=== PATIENT | female | born 1935 | race Caucasian/White ===

== ENCOUNTER 2017-10-30 18:40 | Inpatient (IN) | payer MEDICARE, OTHER ==
[2017-10-30 19:04] LABS: % BASOPHILS 1.6 % (0.0-2.0); % EOSINOPHILS 7.2 % (0.0-5.0); % LYMPHOCYTES 34.5 % (20.0-50.0); % MONOCYTES 13.8 % (2.0-10.0); % NEUTROPHILS 42.9 % (40.0-80.0); BASOPHILE ABSOLUTE 0.1 Th/cumm (0-0.2); EOSINOPHILE ABSOLUTE 0.6 Th/cmm (0.1-0.4); HEMATOCRIT 32.2 % (41.0-60); HEMOGLOBIN 11.1 gm/dL (12-16); LYMPHOCYTE ABSOLUTE 2.9 Th/cmm (1.5-3.0); MEAN CELL VOLUME 90.4 fl (81-100); MEAN CORPUSCULAR HGB CONC 34.3 pg (28.0-36.0); MEAN PLATELET VOLUME 7.2 fl; MONOCYTE ABSOLUTE 1.1 Th/cmm (0.3-1.0); NEUTROPHILE ABSOLUTE 3.6 Th/cmm (1.8-8.0); PLATELET COUNT 257 Th/cmm (150-400); RED BLOOD COUNT 3.56 Mil/cmm (3.80-5.20); RED CELL DISTRIBUTION WIDTH 12.7 % (11.5-20.0); WHITE BLOOD COUNT 8.3 Th/cmm (4.8-10.8)
[2017-10-30 19:19] LABS: ALB/GLOB RATIO 1.3 (1.0-1.8); ALBUMIN 3.8 gm/dL (3.7-5.3); ALKALINE PHOSPHATASE 51 U/L (34-104); ANION GAP 9.6 (7.0-16.0); BILIRUBIN,TOTAL 0.3 mg/dL (0.3-1.0); BUN - UREA NITROGEN 35 mg/dL (7-25); CALCIUM SERUM 9.2 mg/dL (8.6-10.3); CARBON DIOXIDE 28.7 mEq/L (21.0-31.0); CHLORIDE 105 mEq/L (98-107); GLUCOSE 86 mg/dL (70-105); MAGNESIUM 2.2 mg/dL (1.9-2.7); PHOSPHOROUS 3.4 mg/dL (2.5-5.0); POTASSIUM SERUM 4.3 mEq/L (3.5-5.1); SGOT 15 U/L (13-39); SGPT/ALT 10 U/L (7-52); SODIUM SERUM 139 mEq/L (136-145); TOTAL PROTEIN,SERUM 6.8 gm/dL (6.0-8.3)
[2017-10-30 19:28] LABS: URINE BILIRUBIN NEGATIVE (NEGATIVE); URINE BLOOD NEGATIVE (NEGATIVE); URINE GLUCOSE (UA) NEGATIVE (NEGATIVE); URINE KETONE NEGATIVE (NEGATIVE); URINE LEUKOCYTE ESTERASE MODERATE (NEGATIVE); URINE NITRATE NEGATIVE (NEGATIVE); URINE PROTEIN NEGATIVE (NEGATIVE); URINE SOURCE CLEAN C; URINE UROBILINOGEN 0.2 E.U./dL (0.2 - 1.0)
[2017-10-30 19:29] LABS: URINE CLARITY HAZY (CLEAR); URINE COLOR YELLOW; URINE MICROSCOPIC INDICATED? YES; URINE RBC 0-2 /hpf (0-5)
[2017-10-30 19:30] LABS: URINE BACTERIA 1+ /hpf (NONE SEEN); URINE EPITHELIAL CELLS MODERATE /lpf (FEW)
[2017-10-30 19:39] LABS: AMPHETAMINE URINE NEGATIVE (NEGATIVE); BARBITURATES URINE NEGATIVE (NEGATIVE); BENZODIAZEPINES QUAL URINE NEGATIVE (NEGATIVE); CANNABINOID THC NEGATIVE (NEGATIVE); COCAINE METABOLITE QUAL URINE NEGATIVE (NEGATIVE); METHADONE URINE NEGATIVE (NEGATIVE); METHAMPHETAMINES QUAL URINE NEGATIVE (NEGATIVE); OPIATES (MORPHINE) QUAL. URINE NEGATIVE (NEGATIVE); PHENCYCLIDINE (PCP) URINE NEGATIVE (NEGATIVE); TRICYCLICS (TCA) QUAL. URINE POSITIVE (NEGATIVE)
--- NOTE | 2017-10-30 19:39 | ED Physician Chart ---
ED Chief Complaint/HPI - Patient Information Date Seen:: 10/30/17 Time Seen:: 18:46 Chief Complaint:: extremely violent, hitting History of Present Illness:: extremely violent, hitting Allergies:: Allergies Allergy/AdvReac Type Severity Reaction Status Date / Time No Known Allergies Allergy Verified 10/30/17 18:45 Vitals:: Vital Signs - 8 hr 10/30/17 18:46 Temp 98.4 F HR 64 RR 19 BP 150/55 O2 Sat % 98 Historian:: Medical Records Review:: Nurse's Note Reviewed ED Review of Systems - Review of Systems General/Constitutional: No fever, No chills, No weight loss, No weakness, No diaphoresis, No edema, No loss of appetite Skin: Skin lesions, No rash, No bruising, Other (left axillary boil with small amount of pus that decompressed and was cultured. No need for I and D. Only blood is coming out now. Suspected MRSA.) Head: No headache, No light-headedness Eyes: No loss of vision, No pain, No diplopia ENT: No earache, No nasal drainage, No sore throat, No tinnitus Neck: No neck pain, No swelling, No thyromegaly, No stiffness, No mass noted Cardio Vascular: No chest pain, No palpitations, No PND, No orthopnea, No edema Pulmonary: No SOB, No cough, No sputum, No wheezing GI: No nausea, No vomiting, No diarrhea, No pain, No melena, No hematochezia, No constipation, No hematemesis G/U: No dysuria, No frequency, No hematuria Musculoskeletal: No bone or joint pain, No back pain, No muscle pain Endocrine: No polyuria, No polydipsia Psychiatric: Prior psych history Hematopoietic: No bruising, No lymphadenopathy Allergic/Immuno: No urticaria, No angioedema Neurological: No syncope, No focal symptoms, No weakness, No paresthesia, No headache, No seizure, No dizziness, No confusion, No vertigo ED Past Medical History - Past Medical History Obtainable: No Past Medical History: CVA/TIA Psychiatricy History: Depression Family Medical History - Family Member Mother History Unknown: Yes father History Unknown: Yes ED Physical Exam - Physical Examination General/Constitutional: Awake, Well-developed, well-nourished, Alert, No distress, Non-toxic appearing, Ambulatory Head: Atraumatic Eyes: Lids, conjuctiva normal, PERRL, EOMI Skin: Nl inspection, No rash, No skin lesions, No ecchymosis, No lymphadenopathy Other Skin comments:: dry mucosa ENMT: External ears, nose nl, Nasal exam nl, Lips, teeth, gums nl Neck: Nontender, Full ROM w/o pain, No JVD, No nuchal rigidity, No bruit, No mass, No stridor Respiratory: Nl effort/Exclusion, Clear to Auscultation, No Wheeze/Rhonchi/Rales Cardio Vascular: RRR, No murmur, gallop, rubs, NL S1 S2 GI: No tenderness/rebounding/guarding, No organomegaly, No hernia, Normal BS's, Nondistended, No mass/bruits, No McBurney tenderness : No CVA tenderness Extremities: No tenderness or effusion, Full ROM, normal strength in all extremities, No edema, Normal digits & nails Neuro/Psych: Normal sensory exam, Normal motor strength, Mood normal, No focal deficits Other Neuro/Psych comments:: c/o pain in R plantar foot where there is a thick callus present. Misc: Normal back, No paraspinal tenderness ED Labs/Radiology/EKG Results - Lab Results Results: Laboratory Tests 10/30/17 10/30/17 10/30/17 18:46 18:55 18:55 WBC 8.3 RBC 3.56 L Hgb 11.1 L Hct 32.2 L MCV 90.4 MCH 31.0 MCHC Differential 34.3 RDW 12.7 Plt Count 257 MPV 7.2 Neutrophils % 42.9 Lymphocytes % 34.5 Monocytes % 13.8 H Eosinophils % 7.2 H Basophils % 1.6 Sodium 139 Potassium 4.3 Chloride 105 Carbon Dioxide 28.7 Anion Gap 9.6 BUN 35 H Creatinine 1.0 Est GFR ( Amer) TNP Est GFR (Non-Af Amer) TNP BUN/Creatinine Ratio 35.0 Glucose 86 Calcium 9.2 Phosphorus 3.4 Magnesium 2.2 Total Bilirubin 0.3 AST 15 ALT 10 Alkaline Phosphatase 51 Total Protein 6.8 Albumin 3.8 Globulin 3.0 Albumin/Globulin Ratio 1.3 Urine Source CLEAN C Urine Color YELLOW Urine Clarity HAZY Urine pH 6.0 Ur Specific [place] 1.020 Urine Protein NEGATIVE Urine Glucose (UA) NEGATIVE Urine Ketones NEGATIVE Urine Blood NEGATIVE Urine Nitrate NEGATIVE Urine Bilirubin NEGATIVE Urine Urobilinogen 0.2 Ur Leukocyte Esterase MODERATE H Urine RBC 0-2 Urine WBC 6-10 H Ur Epithelial Cells MODERATE Urine Bacteria 1+ H ED Assessment - Assessment General Assessment: resting comfortably. she ate part of a sandwich. Assessment/Comments:: spoke with Dr. Chanel about the fact that the patient has a decompressed left axillary abscess with 2 drops of pus. The hole in the abscess is the size of an eraser head of a pencil. No need for further decompression or I and D. Venous blood is coming out on its own. Culture sent of the pus. Suspected MRSA of the left axilla. Therefore, instead of geropsych, this patient will be sent to med surg per Dr. Chanel. ED Septic Shock - . Is Septic Shock (SBP<90, OR Lactate>4 mmol\L) present?: No - <6hrs of presentation: Vital Signs: Vital Signs - 8 hr 10/30/ 18:46 Temp 98.4 F HR 64 RR 19 BP 150/55 O2 Sat % 98 ED Reassessment (Disposition) - Reassessment Reassessment Condition:: Unchanged - Diagnosis Diagnosis:: violent behavior left axillary abscess that has decompressed on its own with surrounding cellulitis MRSA suspected alzheimer's dementia depression diabetes mellitus URINARY TRACT INFECTION TIA, unspecified repeated falls altered mental status, unspecified difficulty in walking, not elsewhere classified muscle weakness, generalized cognitive communication deficit methicillin susceptible staph aureus infection cerebrovascular disease, unspecified other hyperlipidemia major depressive disorder paranoid schizophrenia unspecified psychosis essential primary hypertension - Patient Disposition Discharge/Transfer:: Acute Care w/in this hosp Admitted to:: Med/Surg Condition at Disposition:: Stable, Unchanged
[2017-10-30] MEDS ORDERED: Sulfamethoxazole/TMP 800/160mg Tab PO ONE (19:44)
[2017-10-30] MEDS ORDERED: Sulfamethoxazole/TMP 800/160mg Tab ONE (19:56)
[2017-10-30] MEDS ORDERED: cefTRIAXone 1 GM in Sodium Chloride 0.9% 50 ML IV ONE (19:57)
--- NOTE | 2017-10-30 21:37 | Consultation ---
Consult Note - Consult Note Service Date: 10/30/17 Referring Physician: Kvng Chanel Consult Note: PHYSICIAN Consultation Note: Date of Admission: 10/30/17 Purpose of Consultation: Lefl axillary abscess. Chief Complaint: Patient SHRUTHI TREJO was admitted to [facility] Medical[facility] Surgical Unit I with ABSCESS. History of Present Illness: 82 year old female with history of Dementia, depression, diabetes mellitus type 2, history of UTI, TIA. Ataxia history of MSSA infection, schizophrenia, psychosis, hypertension brought in for erythematous tender swelling under left axilla. It is draining pus. Patient was started on Bactrim and Rocephin. ID consult was called for further antibiotic management. Patient is no fever no leukocytosis. Past Medical History: Dementia, depression, diabetes mellitus type 2, history of UTI, TIA. Ataxia history of MSSA infection, schizophrenia, psychosis, hypertension. Allergies Allergy/AdvReac Type Severity Reaction Status Date / Time No Known Allergies Allergy Verified 10/30/17 18:45 Vital Signs Temp 98.1 F 10/30/17 19:45 Pulse 68 10/30/17 19:45 Resp 18 10/30/17 19:45 BP 142/61 10/30/17 19:45 Pulse Ox 98 10/30/17 19:45 Intake & Output 10/30/17 10/30/17 10/31/17 06:59 18:59 06:59 Intake Total 50 Balance 50 Weight (lbs) 58.967 kg Intake: Intake, IV Amount 50 Other: Weight Source Estimated Laboratory Results - last 24 hr 10/30/17 10/30/17 10/30/17 18:55 18:55 18:55 WBC 8.3 RBC 3.56 L Hgb 11.1 L Hct 32.2 L MCV 90.4 MCH 31.0 MCHC Differential 34.3 RDW 12.7 Plt Count 257 MPV 7.2 Neutrophils % 42.9 Lymphocytes % 34.5 Monocytes % 13.8 H Eosinophils % 7.2 H Basophils % 1.6 Sodium 139 Potassium 4.3 Chloride 105 Carbon Dioxide 28.7 Anion Gap 9.6 BUN 35 H Creatinine 1.0 Est GFR ( Amer) TNP Est GFR (Non-Af Amer) TNP BUN/Creatinine Ratio 35.0 Glucose 86 Calcium 9.2 Phosphorus 3.4 Magnesium 2.2 Total Bilirubin 0.3 AST 15 ALT 10 Alkaline Phosphatase 51 Total Protein 6.8 Albumin 3.8 Globulin 3.0 Albumin/Globulin Ratio 1.3 TSH 3.83 Urine Source Urine Color Urine Clarity Urine pH Ur Specific [place] Urine Protein Urine Glucose (UA) Urine Ketones Urine Blood Urine Nitrate Urine Bilirubin Urine Urobilinogen Ur Leukocyte Esterase Urine RBC Urine WBC Ur Epithelial Cells Urine Bacteria Urine Opiates Screen Urine Methadone Screen Ur Barbiturates Screen Ur Tricyclics Screen Ur Phencyclidine Scrn Amphetamines Screen U Methamphetamines Scrn U Benzodiazepines Scrn U Cocaine Metab Screen U Cannabinoids Screen 10/30/17 10/30/17 19:00 19:00 WBC RBC Hgb Hct MCV MCH MCHC Differential RDW Plt Count MPV Neutrophils % Lymphocytes % Monocytes % Eosinophils % Basophils % Sodium Potassium Chloride Carbon Dioxide Anion Gap BUN Creatinine Est GFR ( Amer) Est GFR (Non-Af Amer) BUN/Creatinine Ratio Glucose Calcium Phosphorus Magnesium Total Bilirubin AST ALT Alkaline Phosphatase Total Protein Albumin Globulin Albumin/Globulin Ratio TSH Urine Source CLEAN C Urine Color YELLOW Urine Clarity HAZY Urine pH 6.0 Ur Specific [place] 1.020 Urine Protein NEGATIVE Urine Glucose (UA) NEGATIVE Urine Ketones NEGATIVE Urine Blood NEGATIVE Urine Nitrate NEGATIVE Urine Bilirubin NEGATIVE Urine Urobilinogen 0.2 Ur Leukocyte Esterase MODERATE H Urine RBC 0-2 Urine WBC 6-10 H Ur Epithelial Cells MODERATE Urine Bacteria 1+ H Urine Opiates Screen NEGATIVE Urine Methadone Screen NEGATIVE Ur Barbiturates Screen NEGATIVE Ur Tricyclics Screen POSITIVE H Ur Phencyclidine Scrn NEGATIVE Amphetamines Screen NEGATIVE U Methamphetamines Scrn NEGATIVE U Benzodiazepines Scrn NEGATIVE U Cocaine Metab Screen NEGATIVE U Cannabinoids Screen NEGATIVE Home Medication Medication Instructions Recorded Type Acetaminophen [Tylenol] 650 mg PO Q4HR PRN 10/30/17 History Amlodipine Besylate 10 mg PO DAILY 10/30/17 History Ascorbic Acid [Vitamin C] 500 mg PO DAILY 10/30/17 History Aspirin [Ecotrin] 325 mg PO DAILY 10/30/17 History Atorvastatin Calcium [Lipitor] 40 mg PO HS 10/30/17 History Bisacodyl [Dulcolax 10 Mg Supp] 10 mg RC DAILY PRN 10/30/17 History Calcium Carbonate [Calcium Carb] 1,000 mg PO Q4HR PRN 10/30/17 History Calcium Carbonate/Vitamin D3 1 each PO DAILY 10/30/17 History [Oyster Shell 250 mg + Vit D Tb] Carvedilol [Coreg] 12.5 mg PO BID 10/30/17 History Cholecalciferol (Vit D3) [Vitamin 1,000 iu PO DAILY 10/30/17 History D3] Donepezil HCl [Aricept] 10 mg PO HS 10/30/17 History Fleet Enema 1 dose RC DAILY PRN 10/30/17 History Losartan Potassium 50 mg PO DAILY 10/30/17 History Magnesium Hydroxide [Milk of 30 ml PO HS PRN 10/30/17 History Magnesia] Melatonin/Pyridoxine [Melatonin 5 1 each PO HS 10/30/17 History mg Tablet] Memantine HCl 5 mg PO BID 10/30/17 History Multivitamin w/ Minerals 1 tab PO DAILY 10/30/17 History [Theragran M] Nitroglycerin 0.4 mg SL Q5MIN PRN MDD 3 TABS 10/30/17 History QUEtiapine Fumarate [SEROquel] 12.5 mg PO BID 10/30/17 History QUEtiapine Fumarate [SEROquel] 25 mg PO HS 10/30/17 History metFORMIN [Glucophage] 500 mg PO BID 10/30/17 History Current Medications Generic Name Dose Route Start Last Admin Trade Name Freq PRN Reason Stop Dose Admin Ceftriaxone Sodium 1 gm/ 50 mls @ 100 mls/hr 10/31/17 21:00 Sodium Chloride IV 12/30/17 20:59 Q24HR [facility] Insulin Aspart 0 units 10/30/17 21:02 Novolog Insulin Sliding Scale SUBQ 12/29/17 21:01 ACHS [facility] Protocol Trimethoprim/Sulfamethoxazole 1 tab 10/31/17 09:00 Bactrim Ds PO 12/30/17 08:59 DAILY [facility] Review of Systems: A 12 point ROS was reviewed with the pertinent positive and negatives noted in the HPI. Social History Smoking Status Current every day smoker Physical Exam: General: Comfortable, well-nourished well-developed. HEENT: At: Normocephalic, atraumatic. Oral cavity: Moist, pink tongue. Eyes: No pallor. No icterus. Pupil PERRLA. EOMI. Neck: Supple, no JVD no use of accessory neck muscles. Cardio: S1 and S2 within normal limits. Respiratory: Vesicular breath sound. No crackles. Abdominal: Soft, Nontender nondistended bowel sounds present. Genital/Urinary: Deferred Extremities: Cyanosis, no clubbing, no edema Neurological: Alert and awake oriented 3 no focal visit. Skin: Patient has a and erythematous swelling with large pustule under the left left axilla, on the chest wall laterally. Assessment: 1. Left axillary abscess. 2. Dementia. 3. Diabetes mellitus type 2. 4. Hypertension. 5. Schizophrenia. Plan: Continue Rocephin and Bactrim. Consult Dr. Pierce. Thank you, Dr. Chanel for involving me in taking care of this patient. Signed, Tre Morton M.D. [id number]
[2017-10-30] MEDS: INSULIN ASPART SLIDING SCALE 100 UNITS/ML UNIT SUBQ SCH (22:17)
[2017-10-30] MEDS ORDERED: Magnesium Hydroxide (MOM) 30 mL UDC PO PRN (23:20)
[2017-10-30] MEDS ORDERED: Fleet Enema 135 mL RC PRN (23:20)
[2017-10-31 00:06] VITALS: BP 142/61
[2017-10-31] MEDS: INSULIN ASPART SLIDING SCALE 100 UNITS/ML UNIT SUBQ SCH ×4 (06:32→20:57)
[2017-10-31] MEDS: Multivitamin w/ Minerals Tab PO SCH (09:51)
[2017-10-31] MEDS: Calcium Carb/Vit D 500 mg/200 U Tab PO SCH (09:51)
[2017-10-31] MEDS: Aspirin 325 mg EC PO SCH (09:51)
[2017-10-31] MEDS: Sulfamethoxazole/TMP 800/160mg Tab PO SCH (09:52)
--- NOTE | 2017-10-31 10:16 | History & Physical ---
ADMIT DATE: 10/30/2017 CHIEF COMPLAINT: Agitation and abscess in the left axilla. HISTORY OF PRESENT ILLNESS: This is an 82-year-old female who was admitted from a [facility] facility to the Emergency Room due to increase in agitation. In the Emergency Room, the patient was noted to have an abscess in the left axillary draining some pus. The patient was admitted to [facility] unit. REVIEW OF SYSTEMS: GENERAL: This is an 82-year-old female that appears as stated. Denies fever. Denies weakness. HEENT: Denies headache. Denies dizziness. EYES: Denies eye pain. Denies blurring of vision. NECK: Denies neck pain. Denies nuchal rigidity. CHEST: Denies chest pain. Denies palpitation. PULMONARY: Denies coughing. Denies shortness of breath. GASTROINTESTINAL: Denies abdominal pain. Denies constipation. Denies diarrhea. MUSCULOSKELETAL: Denies joint pain. Denies muscle pain. INTEGUMENTARY: The patient is noted to have abscess on the left axillary. SOCIAL HISTORY: The patient lives in a [facility] facility prior to hospitalization. No nicotine, alcohol, or illicit drug use. PSYCHIATRIC HISTORY: Includes dementia. PAST SURGICAL HISTORY: Unremarkable. FAMILY HISTORY: Unremarkable. PAST MEDICAL HISTORY: Includes hypertension, osteoarthritis, vitamin D deficiency, and diabetes. PHYSICAL EXAMINATION: VITAL SIGNS: Temperature 97.4, heart rate 70, blood pressure 117/82, respirations of 18, and 98% on room air. HEENT: Head is atraumatic, normocephalic. Eyes: Bilateral conjunctivae are clear. Bilateral pupils are equally round and reactive. NECK: Supple. No JVD. CARDIOVASCULAR: S1 and S2, without murmur. PULMONARY: Clear to auscultation. GASTROINTESTINAL: Soft and nontender without guarding. Positive bowel sounds. MUSCULOSKELETAL: No clubbing. No cyanosis noted. INTEGUMENTARY: Positive abscess in the left axilla, noted to have redness with some pus draining off. ASSESSMENT: 1. Dementia. 2. Left axillary abscess. 3. Hypertension. 4. Diabetes. 5. Osteoarthritis. PLAN: We will consult with ID doctor for antibiotic management. We will do medication reconciliation accordingly. We will wait for the culture and sensitivity result. Treatment plans were discussed with the patient's nurse. Treatment plans were discussed with Dr. Chanel. [facility]# [id number]
[2017-10-31] MEDS: cefTRIAXone 1 GM in Sodium Chloride 0.9% 50 ML IV SCH (20:52)
[2017-10-31] MEDS: Atorvastatin Calcium 10 MG TAB PO SCH (20:54)
[2017-10-31] MEDS ORDERED: MELATONIN PO SCH (21:00)
[2017-10-31] MEDS ORDERED: PYRIDOXINE PO SCH (21:00)
--- NOTE | 2017-10-31 23:39 | Consultation ---
DATE OF CONSULTATION: 10/31/[address] Ruiz. IDENTIFYING INFORMATION: The patient is an 82-year-old female. HISTORY OF PRESENT ILLNESS: I was asked to see this patient by Dr. Chanel as the patient was supposed to have been going to [facility], but apparently she ended up in the Med-Surg unit because of an abscess. The patient was a very poor historian. She was extremely paranoid when I tried to talk to her, she was half naked and when I asked her questions, she kept saying she is not criminal. She was very agitated, hard to redirect, very poor insight. Unable to tell me her age, where she is, why she is here. PAST PSYCHIATRIC HISTORY: Dementia. MEDICAL HISTORY: The patient is with a history of hypertension, osteoarthritis, ____ deficiency and diabetes. She was admitted to Med/Surg, because of abscess in her left axilla. The patient has no clue why she is here. CURRENT MEDICATIONS: Includes amlodipine, aspirin, atorvastatin, calcium, Rocephin antibiotic, Calciferol, insulin, losartan, Namenda 5 mg twice a day, metformin 500 twice a day, nitroglycerin, multivitamin and Seroquel 12.5 mg twice a day, 25 mg at bedtime, sulfamethoxazole one tablet daily. FAMILY AND SOCIAL HISTORY: The patient was unable to answer any of my questions. She got very agitated when asked, she sustained she is not a criminal, unable to tell me when asked about her age, she started banging on her legs, very agitated, unable to make sense. MENTAL STATUS EXAMINATION: The patient is appropriately dressed in hospital gown. However, she was half naked, she was alert, however, unable to tell me her age, where she is actually got very agitated for the question. Unable to make safe plan for self-care, appears to be paranoid, easily agitated, unable to test her memory because of her agitation, paranoia; however, she has a history of dementia and was unable to answer questions regarding hallucination or suicidal ideation. Insight and judgment is impaired. IMPRESSION: AXIS I: Psychosis, not otherwise specified, dementia. MEDICAL DIAGNOSES: As per Dr. Chanel. PLAN: I would recommend to continue the Seroquel, transferred to [facility] if medically clear. Thank you very much for allowing me to participate in the care of this interesting lady. JOB# [id number]
[2017-11-01] MEDS: Multivitamin w/ Minerals Tab PO SCH (08:10)
[2017-11-01] MEDS: Sulfamethoxazole/TMP 800/160mg Tab PO SCH (08:10)
[2017-11-01] MEDS: Calcium Carb/Vit D 500 mg/200 U Tab PO SCH (08:11)
[2017-11-01] MEDS: Aspirin 325 mg EC PO SCH (08:12)
[2017-11-01] MEDS: INSULIN ASPART SLIDING SCALE 100 UNITS/ML UNIT SUBQ SCH ×4 (08:46→20:13)
--- NOTE | 2017-11-01 13:09 | General Progress Note ---
Subjective - Review of Systems Events since last encounter: very confused paranoid does not know why she is here Objective - Results Result Diagrams: 10/30/17 18:55 10/30/17 18:55 Recent Labs: Laboratory Last Values WBC 8.3 Th/cmm (4.8-10.8) 18 18:55 RBC 3.56 Mil/cmm (3.80-5.20) L 10/30/17 18:55 Hgb 11.1 gm/dL (12-16) L 10/30/17 18:55 Hct 32.2 % (41.0-60) L 10/30/17 18:55 MCV 90.4 fl (81-100) 10/30/17 18:55 MCH 31.0 pg (27.0-31.0) 10/30/17 18:55 MCHC Differential 34.3 pg (28.0-36.0) 10/30/17 18:55 RDW 12.7 % (11.5-20.0) 10/30/17 18:55 Plt Count 257 Th/cmm (150-400) 18 18:55 MPV 7.2 fl 10/30/17 18:55 Neutrophils % 42.9 % (40.0-80.0) 10/30/17 18:55 Lymphocytes % 34.5 % (20.0-50.0) 10/30/17 18:55 Monocytes % 13.8 % (2.0-10.0) H 10/30/17 18:55 Eosinophils % 7.2 % (0.0-5.0) H 10/30/17 18:55 Basophils % 1.6 % (0.0-2.0) 18 18:55 Sodium 139 mEq/L (136-145) 18 18:55 Potassium 4.3 mEq/L (3.5-5.1) 18 18:55 Chloride 105 mEq/L (98-107) 18 18:55 Carbon Dioxide 28.7 mEq/L (21.0-31.0) 18 18:55 Anion Gap 9.6 (7.0-16.0) 18 18:55 BUN 35 mg/dL (7-25) H 18 18:55 Creatinine 1.0 mg/dL (0.6-1.2) 10/30/17 18:55 Est GFR ( Amer) TNP 10/30/17 18:55 Est GFR (Non-Af Amer) TNP 18 18:55 BUN/Creatinine Ratio 35.0 10/30/17 18:55 Glucose 86 mg/dL (70-105) 10/30/17 18:55 POC Glucose 107 MG/DL (70 - 105) H 11/01/17 11:40 Calcium 9.2 mg/dL (8.6-10.3) 10/30/17 18:55 Phosphorus 3.4 mg/dL (2.5-5.0) 10/30/17 18:55 Magnesium 2.2 mg/dL (1.9-2.7) 10/30/17 18:55 Total Bilirubin 0.3 mg/dL (0.3-1.0) 10/30/17 18:55 AST 15 U/L (13-39) 10/30/17 18:55 ALT 10 U/L (7-52) 10/30/17 18:55 Alkaline Phosphatase 51 U/L (34-104) 10/30/17 18:55 Total Protein 6.8 gm/dL (6.0-8.3) 10/30/17 18:55 Albumin 3.8 gm/dL (3.7-5.3) 10/30/17 18:55 Globulin 3.0 gm/dL 10/30/17 18:55 Albumin/Globulin Ratio 1.3 (1.0-1.8) 10/30/17 18:55 TSH 3.83 uIU/ml (0.34-5.60) 10/30/17 18:55 Urine Source CLEAN C 10/30/17 19:00 Urine Color YELLOW 10/30/17 19:00 Urine Clarity HAZY (CLEAR) 10/30/17 19:00 Urine pH 6.0 (4.6 - 8.0) 10/30/17 19:00 Ur Specific [place] 1.020 (1.005-1.030) 10/30/17 19:00 Urine Protein NEGATIVE mg/dL (NEGATIVE) 10/30/17 19:00 Urine Glucose (UA) NEGATIVE mg/dL (NEGATIVE) 10/30/17 19:00 Urine Ketones NEGATIVE mg/dL (NEGATIVE) 10/30/17 19:00 Urine Blood NEGATIVE (NEGATIVE) 10/30/17 19:00 Urine Nitrate NEGATIVE (NEGATIVE) 10/30/17 19:00 Urine Bilirubin NEGATIVE (NEGATIVE) 10/30/17 19:00 Urine Urobilinogen 0.2 E.U./dL (0.2 - 1.0) 10/30/17 19:00 Ur Leukocyte Esterase MODERATE (NEGATIVE) H 10/30/17 19:00 Urine RBC 0-2 /hpf (0-5) 10/30/17 19:00 Urine WBC 6-10 /hpf (0-5) H 10/30/17 19:00 Ur Epithelial Cells MODERATE /lpf (FEW) 10/30/17 19:00 Urine Bacteria 1+ /hpf (NONE SEEN) H 10/30/17 19:00 Urine Opiates Screen NEGATIVE (NEGATIVE) 10/30/17 19:00 Urine Methadone Screen NEGATIVE (NEGATIVE) 10/30/17 19:00 Ur Barbiturates Screen NEGATIVE (NEGATIVE) 10/30/17 19:00 Ur Tricyclics Screen POSITIVE (NEGATIVE) H 10/30/17 19:00 Ur Phencyclidine Scrn NEGATIVE (NEGATIVE) 10/30/17 19:00 Amphetamines Screen NEGATIVE (NEGATIVE) 10/30/17 19:00 U Methamphetamines Scrn NEGATIVE (NEGATIVE) 10/30/17 19:00 U Benzodiazepines Scrn NEGATIVE (NEGATIVE) 10/30/17 19:00 U Cocaine Metab Screen NEGATIVE (NEGATIVE) 10/30/17 19:00 U Cannabinoids Screen NEGATIVE (NEGATIVE) 10/30/17 19:00 - Physical Exam Vitals and I&O: Vital Signs Temp 97.6 F 11/01/17 11:41 Pulse 67 11/01/17 11:41 Resp 18 11/01/17 11:41 BP 119/79 11/01/17 11:41 Pulse Ox 98 11/01/17 11:41 Intake & Output 10/31/17 11/01/17 11/01/17 18:59 06:59 18:59 Intake Total 520 Balance 520 Weight (lbs) 58.967 kg Intake: Oral 520 Other: # Voids 1 Stool Characteristics Soft Brown Weight Source Bedscale Active Medications: Current Medications Acetaminophen (Tylenol) 650 mg PO Q4HR PRN PRN Reason: Pain or Fever >101 Stop: 12/29/17 23:19 Amlodipine Besylate (Norvasc) 10 mg PO DAILY REHANA Stop: 12/30/17 08:59 Last Admin: 11/01/17 08:10 Dose: 10 mg Ascorbic Acid (Vitamin C) 500 mg PO DAILY REHANA Stop: 12/30/17 08:59 Last Admin: 11/01/17 08:11 Dose: 500 mg Aspirin (Ecotrin) 325 mg PO DAILY REHANA Stop: 12/30/17 08:59 Last Admin: 11/01/17 08:12 Dose: 325 mg Atorvastatin Calcium (Lipitor) 40 mg PO HS REHANA Stop: 12/30/17 20:59 Last Admin: 10/31/17 20:54 Dose: 40 mg Bisacodyl (Dulcolax 10 Mg Supp) 10 mg RC DAILY PRN PRN Reason: Constipation Stop: 12/29/17 23:19 Calcium Carbonate (Calcium Carb) 1,000 mg PO Q4HR PRN PRN Reason: GI DISTRESS Stop: 12/29/17 23:19 Calcium/Vitamin D (Oscal W/Vitamin D) 1 tab PO DAILY REHANA Stop: 12/30/17 08:59 Last Admin: 11/01/17 08:11 Dose: 1 tab Carvedilol (Coreg) 12.5 mg PO BIDBRS [facility] Stop: 12/30/17 07:59 Last Admin: 11/01/17 08:09 Dose: 12.5 mg Cholecalciferol (Vitamin D3) 1,000 iu PO DAILY REHANA Stop: 12/30/17 08:59 Last Admin: 11/01/17 08:12 Dose: 1,000 iu Donepezil HCl (Aricept) 10 mg PO HS REHANA Stop: 12/30/17 20:59 Last Admin: 10/31/17 20:54 Dose: 10 mg Ceftriaxone Sodium 1 gm/ (Sodium Chloride) 50 mls @ 100 mls/hr IV Q24HR [facility] Stop: 12/30/17 20:59 Last Admin: 10/31/17 20:52 Dose: 100 mls/hr Insulin Aspart (Novolog Insulin Sliding Scale) 0 units SUBQ ACHS REHA[facility]; Protocol Stop: 12/29/17 21:01 Last Admin: 11/01/17 11:41 Dose: Not Given Lorazepam (Ativan) 0.5 mg PO Q6HR PRN; Protocol PRN Reason: Agitation Stop: 12/29/17 21:44 Last Admin: 11/01/17 08:09 Dose: 0.5 mg Losartan Potassium (Cozaar) 50 mg PO DAILY [facility] Stop: 12/30/17 08:59 Last Admin: 11/01/17 08:12 Dose: 50 mg Magnesium Hydroxide (Milk Of Magnesia) 30 ml PO HS PRN PRN Reason: Constipation Stop: 12/29/17 23:19 Memantine (Namenda) 5 mg PO BID [facility] Stop: 12/30/17 08:59 Last Admin: 11/01/17 08:11 Dose: 5 mg Metformin HCl (Glucophage) 500 mg PO BID [facility] Stop: 12/30/17 08:59 Last Admin: 11/01/17 08:12 Dose: 500 mg Mupirocin (Bactroban Oint) 1 appl NS BID [facility] Stop: 11/05/17 09:01 Last Admin: 11/01/17 08:13 Dose: 1 appl Nitroglycerin (Nitrostat) 0.4 mg SL Q5MIN PRN PRN Reason: Chest Pain Stop: 12/29/17 23:19 Quetiapine Fumarate (Seroquel) 25 mg PO HS [facility]; Protocol Stop: 12/30/17 20:59 Last Admin: 10/31/17 20:54 Dose: 25 mg Quetiapine Fumarate (Seroquel) 12.5 mg PO BID [facility]; Protocol Stop: 12/30/17 08:59 Last Admin: 11/01/17 08:14 Dose: 12.5 mg Sodium Phosphate (Fleet Enema) 135 ml RC DAILY PRN PRN Reason: Constipation Stop: 12/29/17 23:19 Trimethoprim/Sulfamethoxazole (Bactrim Ds) 1 tab PO DAILY [facility] Stop: 12/30/17 08:59 Last Admin: 11/01/17 08:10 Dose: 1 tab Assessment/Plan - Problem List Patient Problems: All Active Problems AGGRESSION WITH CONFUSION (Acute)
--- NOTE | 2017-11-01 18:13 | Infectious Disease Prog Note ---
Infectious Disease Subjective - Review of Systems Service Date: 11/01/17 Subjective: No change, no fever. Infectious Disease Objective - Results Result Diagrams: 10/30/17 18:55 10/30/17 18:55 Recent Labs: Laboratory Last Values WBC 8.3 Th/cmm (4.8-10.8) 18 18:55 RBC 3.56 Mil/cmm (3.80-5.20) L 10/30/17 18:55 Hgb 11.1 gm/dL (12-16) L 10/30/17 18:55 Hct 32.2 % (41.0-60) L 18 18:55 MCV 90.4 fl (81-100) 10/30/17 18:55 MCH 31.0 pg (27.0-31.0) 10/30/17 18:55 MCHC Differential 34.3 pg (28.0-36.0) 10/30/17 18:55 RDW 12.7 % (11.5-20.0) 10/30/17 18:55 Plt Count 257 Th/cmm (150-400) 18 18:55 MPV 7.2 fl 18 18:55 Neutrophils % 42.9 % (40.0-80.0) 10/30/17 18:55 Lymphocytes % 34.5 % (20.0-50.0) 18 18:55 Monocytes % 13.8 % (2.0-10.0) H 10/30/17 18:55 Eosinophils % 7.2 % (0.0-5.0) H 10/30/17 18:55 Basophils % 1.6 % (0.0-2.0) 18 18:55 Sodium 139 mEq/L (136-145) 18 18:55 Potassium 4.3 mEq/L (3.5-5.1) 18 18:55 Chloride 105 mEq/L (98-107) 18 18:55 Carbon Dioxide 28.7 mEq/L (21.0-31.0) 18 18:55 Anion Gap 9.6 (7.0-16.0) 18 18:55 BUN 35 mg/dL (7-25) H 10/30/17 18:55 Creatinine 1.0 mg/dL (0.6-1.2) 10/30/17 18:55 Est GFR ( Amer) TNP 10/30/17 18:55 Est GFR (Non-Af Amer) TNP 18 18:55 BUN/Creatinine Ratio 35.0 10/30/17 18:55 Glucose 86 mg/dL (70-105) 10/30/17 18:55 POC Glucose 106 MG/DL (70 - 105) H 11/01/17 16:34 Calcium 9.2 mg/dL (8.6-10.3) 10/30/17 18:55 Phosphorus 3.4 mg/dL (2.5-5.0) 10/30/17 18:55 Magnesium 2.2 mg/dL (1.9-2.7) 10/30/17 18:55 Total Bilirubin 0.3 mg/dL (0.3-1.0) 10/30/17 18:55 AST 15 U/L (13-39) 10/30/17 18:55 ALT 10 U/L (7-52) 10/30/17 18:55 Alkaline Phosphatase 51 U/L (34-104) 10/30/17 18:55 Total Protein 6.8 gm/dL (6.0-8.3) 10/30/17 18:55 Albumin 3.8 gm/dL (3.7-5.3) 10/30/17 18:55 Globulin 3.0 gm/dL 10/30/17 18:55 Albumin/Globulin Ratio 1.3 (1.0-1.8) 10/30/17 18:55 TSH 3.83 uIU/ml (0.34-5.60) 10/30/17 18:55 Urine Source CLEAN C 10/30/17 19:00 Urine Color YELLOW 10/30/17 19:00 Urine Clarity HAZY (CLEAR) 10/30/17 19:00 Urine pH 6.0 (4.6 - 8.0) 10/30/17 19:00 Ur Specific [place] 1.020 (1.005-1.030) 10/30/17 19:00 Urine Protein NEGATIVE mg/dL (NEGATIVE) 10/30/17 19:00 Urine Glucose (UA) NEGATIVE mg/dL (NEGATIVE) 10/30/17 19:00 Urine Ketones NEGATIVE mg/dL (NEGATIVE) 10/30/17 19:00 Urine Blood NEGATIVE (NEGATIVE) 10/30/17 19:00 Urine Nitrate NEGATIVE (NEGATIVE) 10/30/17 19:00 Urine Bilirubin NEGATIVE (NEGATIVE) 10/30/17 19:00 Urine Urobilinogen 0.2 E.U./dL (0.2 - 1.0) 10/30/17 19:00 Ur Leukocyte Esterase MODERATE (NEGATIVE) H 10/30/17 19:00 Urine RBC 0-2 /hpf (0-5) 10/30/17 19:00 Urine WBC 6-10 /hpf (0-5) H 10/30/17 19:00 Ur Epithelial Cells MODERATE /lpf (FEW) 10/30/17 19:00 Urine Bacteria 1+ /hpf (NONE SEEN) H 10/30/17 19:00 Urine Opiates Screen NEGATIVE (NEGATIVE) 10/30/17 19:00 Urine Methadone Screen NEGATIVE (NEGATIVE) 10/30/17 19:00 Ur Barbiturates Screen NEGATIVE (NEGATIVE) 10/30/17 19:00 Ur Tricyclics Screen POSITIVE (NEGATIVE) H 10/30/17 19:00 Ur Phencyclidine Scrn NEGATIVE (NEGATIVE) 10/30/17 19:00 Amphetamines Screen NEGATIVE (NEGATIVE) 10/30/17 19:00 U Methamphetamines Scrn NEGATIVE (NEGATIVE) 10/30/17 19:00 U Benzodiazepines Scrn NEGATIVE (NEGATIVE) 10/30/17 19:00 U Cocaine Metab Screen NEGATIVE (NEGATIVE) 10/30/17 19:00 U Cannabinoids Screen NEGATIVE (NEGATIVE) 10/30/17 19:00 - Physical Exam Vitals and I&O: Vital Signs Temp 97.8 F 11/01/17 16:00 Pulse 70 11/01/17 17:04 Resp 18 11/01/17 16:00 BP 124/78 11/01/17 17:04 Pulse Ox 98 11/01/17 16:00 Intake & Output 10/31/17 11/01/17 11/01/17 18:59 06:59 18:59 Intake Total 520 850 Balance 520 850 Weight (lbs) 58.967 kg 59.903 kg Intake: Oral 520 850 Other: # Voids 1 3 # Bowel Movements 1 Stool Characteristics Soft Brown Weight Source Bedscale Bedscale Active Medications: Current Medications Acetaminophen (Tylenol) 650 mg PO Q4HR PRN PRN Reason: Pain or Fever >101 Stop: 12/29/17 23:19 Amlodipine Besylate (Norvasc) 10 mg PO DAILY [facility] Stop: 12/30/17 08:59 Last Admin: 11/01/17 08:10 Dose: 10 mg Ascorbic Acid (Vitamin C) 500 mg PO DAILY [facility] Stop: 12/30/17 08:59 Last Admin: 11/01/17 08:11 Dose: 500 mg Aspirin (Ecotrin) 325 mg PO DAILY [facility] Stop: 12/30/17 08:59 Last Admin: 11/01/17 08:12 Dose: 325 mg Atorvastatin Calcium (Lipitor) 40 mg PO HS [facility] Stop: 12/30/17 20:59 Last Admin: 10/31/17 20:54 Dose: 40 mg Bisacodyl (Dulcolax 10 Mg Supp) 10 mg RC DAILY PRN PRN Reason: Constipation Stop: 12/29/17 23:19 Calcium Carbonate (Calcium Carb) 1,000 mg PO Q4HR PRN PRN Reason: GI DISTRESS Stop: 12/29/17 23:19 Calcium/Vitamin D (Oscal W/Vitamin D) 1 tab PO DAILY [facility] Stop: 12/30/17 08:59 Last Admin: 11/01/17 08:11 Dose: 1 tab Carvedilol (Coreg) 12.5 mg PO BIDBRS [facility] Stop: 12/30/17 07:59 Last Admin: 11/01/17 17:04 Dose: 12.5 mg Cholecalciferol (Vitamin D3) 1,000 iu PO DAILY [facility] Stop: 12/30/17 08:59 Last Admin: 11/01/17 08:12 Dose: 1,000 iu Donepezil HCl (Aricept) 10 mg PO HS [facility] Stop: 12/30/17 20:59 Last Admin: 10/31/17 20:54 Dose: 10 mg Ceftriaxone Sodium 1 gm/ (Sodium Chloride) 50 mls @ 100 mls/hr IV Q24HR [facility] Stop: 12/30/17 20:59 Last Admin: 10/31/17 20:52 Dose: 100 mls/hr Insulin Aspart (Novolog Insulin Sliding Scale) 0 units SUBQ ACHS [facility]; Protocol Stop: 12/29/17 21:01 Last Admin: 11/01/17 16:39 Dose: Not Given Lorazepam (Ativan) 0.5 mg PO Q6HR PRN; Protocol PRN Reason: Agitation Stop: 12/29/17 21:44 Last Admin: 11/01/17 15:46 Dose: 0.5 mg Losartan Potassium (Cozaar) 50 mg PO DAILY [facility] Stop: 12/30/17 08:59 Last Admin: 11/01/17 08:12 Dose: 50 mg Magnesium Hydroxide (Milk Of Magnesia) 30 ml PO HS PRN PRN Reason: Constipation Stop: 12/29/17 23:19 Memantine (Namenda) 5 mg PO BID [facility] Stop: 12/30/17 08:59 Last Admin: 11/01/17 16:31 Dose: 5 mg Metformin HCl (Glucophage) 500 mg PO BID [facility] Stop: 12/30/17 08:59 Last Admin: 11/01/17 16:31 Dose: 500 mg Mupirocin (Bactroban Oint) 1 appl NS BID [facility] Stop: 11/05/17 09:01 Last Admin: 11/01/17 16:30 Dose: 1 appl Nitroglycerin (Nitrostat) 0.4 mg SL Q5MIN PRN PRN Reason: Chest Pain Stop: 12/29/17 23:19 Quetiapine Fumarate (Seroquel) 25 mg PO HS [facility]; Protocol Stop: 12/30/17 20:59 Last Admin: 10/31/17 20:54 Dose: 25 mg Quetiapine Fumarate (Seroquel) 12.5 mg PO BID [facility]; Protocol Stop: 12/30/17 08:59 Last Admin: 11/01/17 16:31 Dose: 12.5 mg Sodium Phosphate (Fleet Enema) 135 ml RC DAILY PRN PRN Reason: Constipation Stop: 12/29/17 23:19 Trimethoprim/Sulfamethoxazole (Bactrim Ds) 1 tab PO DAILY [facility] Stop: 12/30/17 08:59 Last Admin: 11/01/17 08:10 Dose: 1 tab General: no acute distress, well developed, well nourished HEENT: atraumatic, normocephalic, PERRLA, EOMI Neck: supple, no thyromegaly Cardiovascular: S1S2, regular Lungs: clear to auscultation bilaterally, clear to percussion Abdomen: soft, no tender, no distended, no rebound Extremities: no cyanosis, no clubbing, no edema Skin: other (erythematous swelling of in the infra axillary area.) Infectious Disease Assmt/Plan - Problem List Patient Problems: All Active Problems AGGRESSION WITH CONFUSION (Acute) - Assessment Assessment: 1. Left axillary abscess. 2. Dementia. 3. Diabetes mellitus type 2. 4. Hypertension. 5. Schizophrenia. 6. MRSA colonization. - Plan Plan: Conitnue bactrim and rocephin.
--- NOTE | 2017-11-01 18:31 | Progress Notes ---
DATE: 11/01/2017 Case was discussed with staff of the patient. The patient continues to be paranoid, easily agitated, continues to have poor insight, demented, confused, unable to make safe plan for self-care or continues to get very fearful and paranoid, unable to participate in meaningful conversation. No side effects of the medication, no sedation, no nausea. Thank you very much for allowing me to participate in the care of this most interesting lady. JOB# [id number]
[2017-11-01] MEDS: Atorvastatin Calcium 10 MG TAB PO SCH (20:12)
[2017-11-01] MEDS: cefTRIAXone 1 GM in Sodium Chloride 0.9% 50 ML IV SCH (20:12)
[2017-11-01] MEDS ORDERED: Morphine Sulfate 2 mg/mL 1mL Syr IVP PRN ×2 (21:55)
[2017-11-02 06:37] LABS: ANION GAP 9.7 (7.0-16.0); BUN - UREA NITROGEN 28 mg/dL (7-25); CALCIUM SERUM 9.2 mg/dL (8.6-10.3); CARBON DIOXIDE 27.5 mEq/L (21.0-31.0); CHLORIDE 104 mEq/L (98-107); CREATININE - SERUM 1.2 mg/dL (0.6-1.2); GLUCOSE 86 mg/dL (70-105); POTASSIUM SERUM 4.2 mEq/L (3.5-5.1); SODIUM SERUM 137 mEq/L (136-145)
[2017-11-02 06:55] LABS: % BASOPHILS 0.8 % (0.0-2.0); % EOSINOPHILS 7.1 % (0.0-5.0); % LYMPHOCYTES 28.8 % (20.0-50.0); % MONOCYTES 8.4 % (2.0-10.0); % NEUTROPHILS 54.9 % (40.0-80.0); BASOPHILE ABSOLUTE 0.1 Th/cumm (0-0.2); EOSINOPHILE ABSOLUTE 0.6 Th/cmm (0.1-0.4); HEMATOCRIT 32.8 % (41.0-60); HEMOGLOBIN 11.1 gm/dL (12-16); LYMPHOCYTE ABSOLUTE 2.4 Th/cmm (1.5-3.0); MEAN CELL VOLUME 90.2 fl (81-100); MEAN CORPUSCULAR HEMOGLOBIN 30.6 pg (27.0-31.0); MEAN CORPUSCULAR HGB CONC 33.9 pg (28.0-36.0); MEAN PLATELET VOLUME 7.4 fl; MONOCYTE ABSOLUTE 0.7 Th/cmm (0.3-1.0); NEUTROPHILE ABSOLUTE 4.5 Th/cmm (1.8-8.0); PLATELET COUNT 274 Th/cmm (150-400); RED BLOOD COUNT 3.63 Mil/cmm (3.80-5.20); RED CELL DISTRIBUTION WIDTH 12.4 % (11.5-20.0); WHITE BLOOD COUNT 8.3 Th/cmm (4.8-10.8)
[2017-11-02] MEDS: INSULIN ASPART SLIDING SCALE 100 UNITS/ML UNIT SUBQ SCH ×2 (07:01→12:29)
[2017-11-02] MEDS: Sulfamethoxazole/TMP 800/160mg Tab PO SCH (08:56)
[2017-11-02] MEDS: Calcium Carb/Vit D 500 mg/200 U Tab PO SCH (08:56)
[2017-11-02] MEDS: Aspirin 325 mg EC PO SCH (08:56)
[2017-11-02] MEDS: Multivitamin w/ Minerals Tab PO SCH (08:57)
--- NOTE | 2017-11-02 10:09 | Diagnostic Imaging Report ---
Right foot (2 views, portable) HISTORY: Pain There appears to be narrowing of all of the metatarsal phalangeal joints with chronic change. Spur formation seen off the dorsal and plantar aspect of the posterior calcaneus. No definite acute bony abnormalities. No definite fractures. Vascular calcification is seen. IMPRESSION: 1. Limited exam (2 views) 2. Osteoarthritis 3. Atherosclerotic vascular changes 4. No definite acute abnormalities 5. Calcaneal spur formation In the presence of recent trauma and persistent symptoms, a repeat radiograph in 5-7 days may be helpful for detection of a subtle or occult fracture.
--- NOTE | 2017-11-02 10:10 | Diagnostic Imaging Report ---
Left foot (2 views) HISTORY: Pain Exam is limited to 2 views. Narrowing of all PIP joints. No definite acute bony amenities. No fractures. Spur formation noted off the plantar and posterior margins of the calcaneus. Vascular calcification seen. IMPRESSION: 1. Limited exam (2 views) 2. No definite acute abnormalities 3. Degenerative/chronic changes 4. Calcaneal spur formation 5. Atherosclerotic vascular changes In the presence of recent trauma and persistent symptoms, a repeat radiograph in 5-7 days may be helpful for detection of a subtle or occult fracture.
--- NOTE | 2017-11-02 13:36 | Infectious Disease Prog Note ---
Infectious Disease Subjective - Review of Systems Subjective: No change, no fever. Infectious Disease Objective - Results Result Diagrams: 11/02/17 05:50 11/02/17 05:50 Recent Labs: Laboratory Last Values WBC 8.3 Th/cmm (4.8-10.8) 11/02/17 05:50 RBC 3.63 Mil/cmm (3.80-5.20) L 11/02/17 05:50 Hgb 11.1 gm/dL (12-16) L 11/02/17 05:50 Hct 32.8 % (41.0-60) L 11/02/17 05:50 MCV 90.2 fl (81-100) 11/02/17 05:50 MCH 30.6 pg (27.0-31.0) 11/02/17 05:50 MCHC Differential 33.9 pg (28.0-36.0) 11/02/17 05:50 RDW 12.4 % (11.5-20.0) 11/02/17 05:50 Plt Count 274 Th/cmm (150-400) 11/02/17 05:50 MPV 7.4 fl 11/02/17 05:50 Neutrophils % 54.9 % (40.0-80.0) 11/02/17 05:50 Lymphocytes % 28.8 % (20.0-50.0) 11/02/17 05:50 Monocytes % 8.4 % (2.0-10.0) 11/02/17 05:50 Eosinophils % 7.1 % (0.0-5.0) H 11/02/17 05:50 Basophils % 0.8 % (0.0-2.0) 11/02/17 05:50 Sodium 137 mEq/L (136-145) 11/02/17 05:50 Potassium 4.2 mEq/L (3.5-5.1) 11/02/17 05:50 Chloride 104 mEq/L (98-107) 11/02/17 05:50 Carbon Dioxide 27.5 mEq/L (21.0-31.0) 11/02/17 05:50 Anion Gap 9.7 (7.0-16.0) 11/02/17 05:50 BUN 28 mg/dL (7-25) H 11/02/17 05:50 Creatinine 1.2 mg/dL (0.6-1.2) 11/02/17 05:50 Est GFR ( Amer) TNP 11/02/17 05:50 Est GFR (Non-Af Amer) TNP 11/02/17 05:50 BUN/Creatinine Ratio 23.3 11/02/17 05:50 Glucose 86 mg/dL (70-105) 11/02/17 05:50 POC Glucose 144 MG/DL (70 - 105) H 11/02/17 11:51 Calcium 9.2 mg/dL (8.6-10.3) 11/02/17 05:50 Phosphorus 3.4 mg/dL (2.5-5.0) 10/30/17 18:55 Magnesium 2.2 mg/dL (1.9-2.7) 10/30/17 18:55 Total Bilirubin 0.3 mg/dL (0.3-1.0) 10/30/17 18:55 AST 15 U/L (13-39) 10/30/17 18:55 ALT 10 U/L (7-52) 10/30/17 18:55 Alkaline Phosphatase 51 U/L (34-104) 10/30/17 18:55 Total Protein 6.8 gm/dL (6.0-8.3) 10/30/17 18:55 Albumin 3.8 gm/dL (3.7-5.3) 10/30/17 18:55 Globulin 3.0 gm/dL 10/30/17 18:55 Albumin/Globulin Ratio 1.3 (1.0-1.8) 10/30/17 18:55 TSH 3.83 uIU/ml (0.34-5.60) 10/30/17 18:55 Urine Source CLEAN C 10/30/17 19:00 Urine Color YELLOW 10/30/17 19:00 Urine Clarity HAZY (CLEAR) 10/30/17 19:00 Urine pH 6.0 (4.6 - 8.0) 10/30/17 19:00 Ur Specific [place] 1.020 (1.005-1.030) 10/30/17 19:00 Urine Protein NEGATIVE mg/dL (NEGATIVE) 10/30/17 19:00 Urine Glucose (UA) NEGATIVE mg/dL (NEGATIVE) 10/30/17 19:00 Urine Ketones NEGATIVE mg/dL (NEGATIVE) 10/30/17 19:00 Urine Blood NEGATIVE (NEGATIVE) 10/30/17 19:00 Urine Nitrate NEGATIVE (NEGATIVE) 10/30/17 19:00 Urine Bilirubin NEGATIVE (NEGATIVE) 10/30/17 19:00 Urine Urobilinogen 0.2 E.U./dL (0.2 - 1.0) 10/30/17 19:00 Ur Leukocyte Esterase MODERATE (NEGATIVE) H 10/30/17 19:00 Urine RBC 0-2 /hpf (0-5) 10/30/17 19:00 Urine WBC 6-10 /hpf (0-5) H 10/30/17 19:00 Ur Epithelial Cells MODERATE /lpf (FEW) 10/30/17 19:00 Urine Bacteria 1+ /hpf (NONE SEEN) H 10/30/17 19:00 Urine Opiates Screen NEGATIVE (NEGATIVE) 10/30/17 19:00 Urine Methadone Screen NEGATIVE (NEGATIVE) 10/30/17 19:00 Ur Barbiturates Screen NEGATIVE (NEGATIVE) 10/30/17 19:00 Ur Tricyclics Screen POSITIVE (NEGATIVE) H 10/30/17 19:00 Ur Phencyclidine Scrn NEGATIVE (NEGATIVE) 10/30/17 19:00 Amphetamines Screen NEGATIVE (NEGATIVE) 10/30/17 19:00 U Methamphetamines Scrn NEGATIVE (NEGATIVE) 10/30/17 19:00 U Benzodiazepines Scrn NEGATIVE (NEGATIVE) 10/30/17 19:00 U Cocaine Metab Screen NEGATIVE (NEGATIVE) 10/30/17 19:00 U Cannabinoids Screen NEGATIVE (NEGATIVE) 10/30/17 19:00 - Physical Exam Vitals and I&O: Vital Signs Temp 98.7 F 11/02/17 11:52 Pulse 79 11/02/17 11:52 Resp 18 11/02/17 11:52 BP 120/77 11/02/17 11:52 Pulse Ox 97 11/02/17 11:52 Intake & Output 11/01/17 11/02/17 11/02/17 18:59 06:59 18:59 Intake Total 850 150 Balance 850 150 Weight (lbs) 59.903 kg 58.06 kg Intake: Intake, IV Amount 50 [id number] 1 gm In 50 Sodium Chloride 0.9% 50 ml @ 100 mls/hr IV Q24HR [facility] Rx#:[id number] Oral 850 100 Other: # Voids 3 2 # Bowel Movements 1 1 Stool Characteristics Soft Brown Weight Source Bedscale Bedscale Active Medications: Current Medications Acetaminophen (Tylenol) 650 mg PO Q4HR PRN PRN Reason: Pain or Fever >101 Stop: 12/29/17 23:19 Amlodipine Besylate (Norvasc) 10 mg PO DAILY [facility] Stop: 12/30/17 08:59 Last Admin: 11/02/17 08:59 Dose: Not Given Ascorbic Acid (Vitamin C) 500 mg PO DAILY [facility] Stop: 12/30/17 08:59 Last Admin: 11/02/17 08:56 Dose: 500 mg Aspirin (Ecotrin) 325 mg PO DAILY [facility] Stop: 12/30/17 08:59 Last Admin: 11/02/17 08:56 Dose: 325 mg Atorvastatin Calcium (Lipitor) 40 mg PO HS [facility] Stop: 12/30/17 20:59 Last Admin: 11/01/17 20:12 Dose: 40 mg Bisacodyl (Dulcolax 10 Mg Supp) 10 mg RC DAILY PRN PRN Reason: Constipation Stop: 12/29/17 23:19 Calcium Carbonate (Calcium Carb) 1,000 mg PO Q4HR PRN PRN Reason: GI DISTRESS Stop: 12/29/17 23:19 Calcium/Vitamin D (Oscal W/Vitamin D) 1 tab PO DAILY [facility] Stop: 12/30/17 08:59 Last Admin: 11/02/17 08:56 Dose: 1 tab Carvedilol (Coreg) 12.5 mg PO BIDBRS [facility] Stop: 12/30/17 07:59 Last Admin: 11/02/17 08:57 Dose: 12.5 mg Cholecalciferol (Vitamin D3) 1,000 iu PO DAILY [facility] Stop: 12/30/17 08:59 Last Admin: 11/02/17 08:56 Dose: 1,000 iu Donepezil HCl (Aricept) 10 mg PO HS [facility] Stop: 12/30/17 20:59 Last Admin: 11/01/17 20:13 Dose: 10 mg Ceftriaxone Sodium 1 gm/ (Sodium Chloride) 50 mls @ 100 mls/hr IV Q24HR [facility] Stop: 12/30/17 20:59 Last Infusion: 11/01/17 21:10 Dose: Infused Insulin Aspart (Novolog Insulin Sliding Scale) 0 units SUBQ ACHS [facility]; Protocol Stop: 12/29/17 21:01 Last Admin: 11/02/17 12:29 Dose: Not Given Lorazepam (Ativan) 0.5 mg PO Q6HR PRN; Protocol PRN Reason: Agitation Stop: 12/29/17 21:44 Last Admin: 11/02/17 08:57 Dose: 0.5 mg Losartan Potassium (Cozaar) 50 mg PO DAILY [facility] Stop: 12/30/17 08:59 Last Admin: 11/02/17 08:58 Dose: 50 mg Magnesium Hydroxide (Milk Of Magnesia) 30 ml PO HS PRN PRN Reason: Constipation Stop: 12/29/17 23:19 Memantine (Namenda) 5 mg PO BID [facility] Stop: 12/30/17 08:59 Last Admin: 11/02/17 08:57 Dose: 5 mg Metformin HCl (Glucophage) 500 mg PO BID [facility] Stop: 12/30/17 08:59 Last Admin: 11/02/17 08:56 Dose: 500 mg Morphine Sulfate (Morphine) 1 mg IVP Q4HR PRN PRN Reason: FOR MODERATE PAIN Stop: 12/31/17 21:54 Last Admin: 11/02/17 01:49 Dose: 1 mg Morphine Sulfate (Morphine) 2 mg IVP Q4HR PRN PRN Reason: FOR SEVERE PAIN Stop: 12/31/17 21:54 Mupirocin (Bactroban Oint) 1 appl NS BID [facility] Stop: 11/05/17 09:01 Last Admin: 11/02/17 09:01 Dose: 1 appl Nitroglycerin (Nitrostat) 0.4 mg SL Q5MIN PRN PRN Reason: Chest Pain Stop: 12/29/17 23:19 Ondansetron HCl (Zofran) 4 mg IV Q6H PRN PRN Reason: Nausea / Vomiting Stop: 12/31/17 21:55 Quetiapine Fumarate (Seroquel) 25 mg PO HS [facility]; Protocol Stop: 12/30/17 20:59 Last Admin: 11/01/17 20:12 Dose: 25 mg Quetiapine Fumarate (Seroquel) 12.5 mg PO BID [facility]; Protocol Stop: 12/30/17 08:59 Last Admin: 11/02/17 08:57 Dose: 12.5 mg Sodium Phosphate (Fleet Enema) 135 ml RC DAILY PRN PRN Reason: Constipation Stop: 12/29/17 23:19 Trimethoprim/Sulfamethoxazole (Bactrim Ds) 1 tab PO DAILY [facility] Stop: 12/30/17 08:59 Last Admin: 11/02/17 08:56 Dose: 1 tab General: no acute distress, well developed, well nourished HEENT: atraumatic, normocephalic, PERRLA, EOMI Neck: supple, no thyromegaly Cardiovascular: S1S2, regular Lungs: clear to auscultation bilaterally, clear to percussion Abdomen: soft, no tender, no distended Extremities: no cyanosis, no clubbing, no edema Neurological: awake, alert, oriented Skin: intact, other (left axilla wound improving.) Infectious Disease Assmt/Plan - Problem List Patient Problems: All Active Problems AGGRESSION WITH CONFUSION (Acute) - Assessment Assessment: 1. Left axillary abscess. 2. Dementia. 3. Diabetes mellitus type 2. 4. Hypertension. 5. Schizophrenia. 6. MRSA colonization. - Plan Plan: Continue Bactrim and dc Rocephin.
== END 2017-11-02 13:53 | DRG 603 ==
LOC: ER 18:40 → MSI 20:06
PROVIDERS: ADMIT Internal Medicine; ATTEND Internal Medicine
DX: L02.412 Cutaneous abscess of left axilla (principal); N39.0 Urinary tract infection, site not specified; F20.0 Paranoid schizophrenia; L03.112 Cellulitis of left axilla; I10 Essential (primary) hypertension; E11.9 Type 2 diabetes mellitus without complications; M19.90 Unspecified osteoarthritis, unspecified site; F29 Unspecified psychosis not due to a substance or known physiological condition; F32.9 Major depressive disorder, single episode, unspecified; G30.9 Alzheimer's disease, unspecified; F02.80 Dementia in other diseases classified elsewhere, unspecified severity, without behavioral disturbance, psychotic disturbance, mood disturbance, and anxiety; M62.81 Muscle weakness (generalized); R41.841 Cognitive communication deficit; B95.61 Methicillin susceptible Staphylococcus aureus infection as the cause of diseases classified elsewhere; E78.4 Other hyperlipidemia; Z79.84 Long term (current) use of oral hypoglycemic drugs; Z22.322 Carrier or suspected carrier of Methicillin resistant Staphylococcus aureus; Z91.81 History of falling; Z86.73 Personal history of transient ischemic attack (TIA), and cerebral infarction without residual deficits
CPT/HCPCS: 36415-UA; 73620-TC-LT; 73620-TC-RT; 80048-TC; 80053-TC; 80307; 81001-TC; 82948-90; 83735-TC; 84100-TC; 84443-TC; 85025-TC; 87070-90; 96374; J0696; J1815; J2270; Z7610

== ENCOUNTER 2017-11-02 14:09 | Inpatient (IN) | payer MEDICARE, OTHER ==
[2017-11-02] MEDS ORDERED: Magnesium Hydroxide (MOM) 30 mL UDC PO PRN ×2 (14:54→16:09)
[2017-11-02] MEDS ORDERED: Maalox 30 mL Cup PO PRN (14:54)
[2017-11-02 15:36] VITALS: BP 112/64
[2017-11-02] MEDS ORDERED: Fleet Enema 135 mL RC PRN (16:09)
[2017-11-02] MEDS: INSULIN ASPART SLIDING SCALE 100 UNITS/ML UNIT SUBQ SCH ×2 (17:31→21:05)
[2017-11-02] MEDS ORDERED: PYRIDOXINE PO SCH (21:00)
[2017-11-02] MEDS ORDERED: MELATONIN PO SCH (21:00)
--- NOTE | 2017-11-03 01:31 | Progress Notes ---
DATE: 11/02/2017 "I got a damn temper." The patient is still irritable and is still agitated. The patient also is confused. She also is still interacting minimally with others and that she gets easily irritable and agitated. The patient also is still complaining of pain on her feet and x-ray was done and the results are pending. She also is still paranoid and is still tearful and resisting care. Otherwise, the patient is compliant with treatment and with medications in spite of her anger and her temper. ASSESSMENT: The patient is still irritable and agitated and she is still having difficulty with her moods. TREATMENT PLAN: Continue to monitor her behavior and her condition closely. Also, continue Seroquel in a dose of 12.5 mg twice a day and 25 mg at bedtime. Also, if the patient continued to be irritable and agitated, the patient might be a candidate for Geropsych unit. JOB# [id number]
[2017-11-03] MEDS: INSULIN ASPART SLIDING SCALE 100 UNITS/ML UNIT SUBQ SCH ×4 (06:31→20:37)
[2017-11-03] MEDS: Calcium Carb/Vit D 500 mg/200 U Tab PO SCH (08:47)
[2017-11-03] MEDS: Aspirin 325 mg EC PO SCH (08:49)
[2017-11-03] MEDS: Multivitamin Tab PO SCH (08:50)
[2017-11-03] MEDS: Sulfamethoxazole/TMP 800/160mg Tab PO SCH (08:50)
[2017-11-03] MEDS ORDERED: Multivitamin w/ Minerals Tab PO SCH (09:00)
--- NOTE | 2017-11-04 01:53 | Psychiatric Evaluation ---
DATE OF SERVICE: INITIAL EVALUATION AND MENTAL STATUS EXAM THE PATIENT'S AGE: 82. SEX: Female. PHYSICIAN: Dr. Ruiz. CHIEF COMPLAINT: Agitation and paranoia. HISTORY OF PRESENT ILLNESS: The patient is an 82-year-old female, who was admitted to the Geropsych Unit after she was in med/surg unit because of an abscess. The patient is a poor historian, but she has been extremely paranoid and has not been answering much of the questions. The patient also is trying to get off her clothes while in med/surg unit. She also was not able to answer any questions appropriately and she kept getting irritable and agitated and was unable to follow any of my directions. PAST PSYCHIATRIC HISTORY: The patient has history of dementia. PAST MEDICAL HISTORY: The patient has osteoarthritis as well as diabetes mellitus and hypertension. The patient also has abscess in her left axilla. SOCIAL HISTORY: The patient lives in retirement. No known alcohol or drug use. ALLERGIES: No known allergies. MENTAL STATUS EXAMINATION: The patient appears slightly older than her stated age. Anxious. Irritable mood. Confused. She is agitated with asking her questions. The patient seems to be paranoid. She does not answer questions regarding auditory or visual hallucinations or regarding suicide or homicide, but she seems to be actively responding. Poor insight and poor judgment. ASSESSMENT: PRIMARY DIAGNOSIS: Unspecified psychosis. SECONDARY DIAGNOSIS: Dementia, moderate to severe, with psychotic features. MEDICAL DIAGNOSES: 1. Hypertension. 2. Diabetes mellitus. 3. Osteoarthritis. 4. Vitamin D deficiency. TREATMENT PLAN: We will monitor the patient's behavior and condition closely. We will start individual as well as milieu psychotherapy. Also, we will work on her psychotropic medication and adjusting the doses. ESTIMATED LENGTH OF STAY: 5-7 days. THE PATIENT'S STRENGTHS AND WEAKNESSES: The patient's strength is not clear at this time except that she is relatively cooperative with treatment. Weaknesses is her ineffective coping and poor judgment. AFTER DISCHARGE PLAN: Outpatient treatment and will follow up. CRITERIA FOR DISCHARGE: The patient will not be psychotic and will stabilize psychotropic medications and will establish outpatient treatment plans. JOB# [id number]
[2017-11-04] MEDS: INSULIN ASPART SLIDING SCALE 100 UNITS/ML UNIT SUBQ SCH ×3 (06:35→17:10)
[2017-11-04] MEDS: Sulfamethoxazole/TMP 800/160mg Tab PO SCH (09:41)
[2017-11-04] MEDS: Multivitamin Tab PO SCH (09:42)
[2017-11-04] MEDS: Calcium Carb/Vit D 500 mg/200 U Tab PO SCH (09:45)
[2017-11-04] MEDS: Aspirin 325 mg EC PO SCH (09:45)
[2017-11-04] MEDS ORDERED: Probiotic Screen MC PRN (11:48)
[2017-11-04] MEDS: Lactobacillus Rhamnosus GG 15 Billion CFU CAP.SPRINK PO SCH (13:04)
--- NOTE | 2017-11-04 14:18 | General Progress Note ---
Subjective - Review of Systems Events since last encounter: paranoid, irritable confused Objective - Results Recent Labs: Laboratory Last Values POC Glucose 89 MG/DL (70 - 105) 11/04/17 05:32 - Physical Exam Vitals and I&O: Vital Signs Temp 96.8 F 11/04/17 06:30 Pulse 69 11/04/17 09:52 Resp 19 11/04/17 06:30 BP 143/60 11/04/17 09:52 Pulse Ox 97 11/04/17 06:30 Intake & Output 11/03/17 11/04/17 11/04/17 18:59 06:59 18:59 Intake Total 700 120 Balance 700 120 Intake: Oral 700 120 Other: # Voids 3 3 # Bowel Movements 0 0 Active Medications: Current Medications Acetaminophen (Tylenol) 650 mg PO Q4HR PRN PRN Reason: Mild Pain / Temp above 100 Stop: 01/01/18 14:53 Al Hydrox/Mg Hydrox/Simethicone (Maalox) 30 ml PO Q4HR PRN PRN Reason: GI DISTRESS Stop: 01/01/18 14:53 Amlodipine Besylate (Norvasc) 10 mg PO DAILY [facility] Stop: 01/02/18 08:59 Last Admin: 11/04/17 09:45 Dose: 10 mg Ascorbic Acid (Vitamin C) 500 mg PO DAILY [facility] Stop: 01/02/18 08:59 Last Admin: 11/04/17 09:45 Dose: 500 mg Aspirin (Ecotrin) 325 mg PO DAILY [facility] Stop: 01/02/18 08:59 Last Admin: 11/04/17 09:45 Dose: 325 mg Atorvastatin Calcium (Lipitor) 40 mg PO HS [facility] Stop: 01/01/18 20:59 Last Admin: 11/03/17 20:38 Dose: 40 mg Bisacodyl (Dulcolax 10 Mg Supp) 10 mg RC DAILY PRN PRN Reason: Constipation Stop: 01/01/18 16:08 Calcium Carbonate (Tums) 1,000 mg PO Q4HR PRN PRN Reason: GI DISTRESS Stop: 01/01/18 16:08 Calcium/Vitamin D (Oscal W/Vitamin D) 1 tab PO DAILY [facility] Stop: 01/02/18 08:59 Last Admin: 11/04/17 09:45 Dose: 1 tab Carvedilol (Coreg) 12.5 mg PO BID [facility] Stop: 01/01/18 16:59 Last Admin: 11/04/17 09:43 Dose: 12.5 mg Cholecalciferol (Vitamin D3) 1,000 iu PO DAILY [facility] Stop: 01/02/18 08:59 Last Admin: 11/04/17 09:43 Dose: 1,000 iu Donepezil HCl (Aricept) 10 mg PO HS [facility] Stop: 01/01/18 20:59 Last Admin: 11/03/17 20:40 Dose: 10 mg Insulin Aspart (Novolog Insulin Sliding Scale) 0 units SUBQ ACHS [facility]; Protocol Stop: 01/01/18 16:29 Last Admin: 11/04/17 12:04 Dose: Not Given Lactobacillus Rhamnosus (Culturelle 15b) 1 each PO DAILY [facility] Stop: 01/03/18 13:59 Last Admin: 11/04/17 13:04 Dose: 1 each Lorazepam (Ativan) 0.5 mg PO Q6HR PRN; Protocol PRN Reason: Agitation Stop: 01/01/18 16:08 Last Admin: 11/03/17 20:39 Dose: 0.5 mg Losartan Potassium (Cozaar) 50 mg PO DAILY [facility] Stop: 01/02/18 08:59 Last Admin: 11/04/17 09:52 Dose: 50 mg Magnesium Hydroxide (Milk Of Magnesia) 30 ml PO HS PRN PRN Reason: Constipation Memantine (Namenda) 5 mg PO BID [facility] Stop: 01/01/18 16:59 Last Admin: 11/04/17 09:43 Dose: 5 mg Metformin HCl (Glucophage) 500 mg PO BID [facility] Stop: 01/01/18 16:59 Last Admin: 11/04/17 09:42 Dose: 500 mg Miscellaneous (Clinical Monitoring) 1 ea MC DAILY PRN PRN Reason: RENAL Stop: 01/01/18 17:08 Miscellaneous (Probiotic Screen) 1 ea MC PRN PRN PRN Reason: PROTOCOL Stop: 01/03/18 11:47 Multivitamins/Vitamin C (Theragran) 1 tab PO DAILY [facility] Stop: 01/02/18 08:59 Last Admin: 11/04/17 09:42 Dose: 1 tab Mupirocin (Bactroban Oint) 1 appl NS BID [facility] Stop: 11/08/17 08:59 Last Admin: 11/04/17 09:38 Dose: 1 appl Nitroglycerin (Nitrostat) 0.4 mg SL Q5MIN PRN PRN Reason: Chest Pain Stop: 01/01/18 16:08 Quetiapine Fumarate (Seroquel) 25 mg PO HS [facility]; Protocol Stop: 01/01/18 20:59 Last Admin: 11/03/17 20:39 Dose: 25 mg Quetiapine Fumarate (Seroquel) 12.5 mg PO BID [facility]; Protocol Stop: 01/03/18 08:59 Last Admin: 11/04/17 09:53 Dose: 12.5 mg Sodium Phosphate (Fleet Enema) 135 ml RC DAILY PRN PRN Reason: IF DULCOLAX INEFFECTIVE Stop: 01/01/18 16:08 Trimethoprim/Sulfamethoxazole (Bactrim Ds) 1 tab PO DAILY [facility] Stop: 01/02/18 08:59 Last Admin: 11/04/17 09:41 Dose: 1 tab Zolpidem Tartrate (Ambien) 5 mg PO HS PRN PRN Reason: Insomnia Stop: 01/01/18 14:53 Last Admin: 11/03/17 20:40 Dose: 5 mg
[2017-11-05] MEDS: INSULIN ASPART SLIDING SCALE 100 UNITS/ML UNIT SUBQ SCH ×5 (06:17→21:01)
[2017-11-05] MEDS: Aspirin 325 mg EC PO SCH (09:47)
[2017-11-05] MEDS: Sulfamethoxazole/TMP 800/160mg Tab PO SCH (09:48)
[2017-11-05] MEDS: Lactobacillus Rhamnosus GG 15 Billion CFU CAP.SPRINK PO SCH (09:48)
[2017-11-05] MEDS: Calcium Carb/Vit D 500 mg/200 U Tab PO SCH (09:50)
[2017-11-05] MEDS: Multivitamin Tab PO SCH (09:51)
[2017-11-05] MEDS ORDERED: Haloperidol Lactate 5 mg/mL 1mL Vial ONE (11:02)
[2017-11-05] MEDS ORDERED: Haloperidol Lactate 5 mg/mL 1mL Vial IM ONE (11:15)
--- NOTE | 2017-11-05 11:43 | General Progress Note ---
Subjective - Review of Systems Events since last encounter: still confuse no pain Objective - Results Recent Labs: Laboratory Last Values POC Glucose 90 MG/DL (70 - 105) 11/05/17 07:01 - Physical Exam Vitals and I&O: Vital Signs Temp 98.2 F 11/05/17 06:50 Pulse 74 11/05/17 09:50 Resp 18 11/05/17 06:50 BP 136/62 11/05/17 09:50 Pulse Ox 97 11/05/17 06:50 Intake & Output 11/04/17 11/05/17 11/05/17 18:59 06:59 18:59 Intake Total 120 Balance 120 Intake: Oral 120 Other: # Voids 3 Active Medications: Current Medications Acetaminophen (Tylenol) 650 mg PO Q4HR PRN PRN Reason: Mild Pain / Temp above 100 Stop: 01/01/18 14:53 Al Hydrox/Mg Hydrox/Simethicone (Maalox) 30 ml PO Q4HR PRN PRN Reason: GI DISTRESS Stop: 01/01/18 14:53 Amlodipine Besylate (Norvasc) 10 mg PO DAILY [facility] Stop: 01/02/18 08:59 Last Admin: 11/05/17 09:50 Dose: 10 mg Ascorbic Acid (Vitamin C) 500 mg PO DAILY [facility] Stop: 01/02/18 08:59 Last Admin: 11/05/17 09:50 Dose: 500 mg Aspirin (Ecotrin) 325 mg PO DAILY [facility] Stop: 01/02/18 08:59 Last Admin: 11/05/17 09:47 Dose: 325 mg Atorvastatin Calcium (Lipitor) 40 mg PO HS [facility] Stop: 01/01/18 20:59 Last Admin: 11/04/17 22:04 Dose: 40 mg Bisacodyl (Dulcolax 10 Mg Supp) 10 mg RC DAILY PRN PRN Reason: Constipation Stop: 01/01/18 16:08 Calcium Carbonate (Tums) 1,000 mg PO Q4HR PRN PRN Reason: GI DISTRESS Stop: 01/01/18 16:08 Calcium/Vitamin D (Oscal W/Vitamin D) 1 tab PO DAILY [facility] Stop: 01/02/18 08:59 Last Admin: 11/05/17 09:50 Dose: 1 tab Carvedilol (Coreg) 12.5 mg PO BID [facility] Stop: 01/01/18 16:59 Last Admin: 11/05/17 09:48 Dose: 12.5 mg Cholecalciferol (Vitamin D3) 1,000 iu PO DAILY [facility] Stop: 01/02/18 08:59 Last Admin: 11/05/17 09:47 Dose: 1,000 iu Donepezil HCl (Aricept) 10 mg PO HS [facility] Stop: 01/01/18 20:59 Last Admin: 11/04/17 22:04 Dose: 10 mg Insulin Aspart (Novolog Insulin Sliding Scale) 0 units SUBQ ACHS [facility]; Protocol Stop: 01/01/18 16:29 Last Admin: 11/05/17 07:04 Dose: Not Given Lactobacillus Rhamnosus (Culturelle 15b) 1 each PO DAILY [facility] Stop: 01/03/18 13:59 Last Admin: 11/05/17 09:48 Dose: 1 each Lorazepam (Ativan) 0.5 mg PO Q6HR PRN; Protocol PRN Reason: Agitation Stop: 01/01/18 16:08 Last Admin: 11/05/17 09:48 Dose: 0.5 mg Losartan Potassium (Cozaar) 50 mg PO DAILY [facility] Stop: 01/02/18 08:59 Last Admin: 11/05/17 09:50 Dose: 50 mg Magnesium Hydroxide (Milk Of Magnesia) 30 ml PO HS PRN PRN Reason: Constipation Memantine (Namenda) 5 mg PO BID [facility] Stop: 01/01/18 16:59 Last Admin: 11/05/17 09:48 Dose: 5 mg Metformin HCl (Glucophage) 500 mg PO BID [facility] Stop: 01/01/18 16:59 Last Admin: 11/05/17 09:47 Dose: 500 mg Miscellaneous (Clinical Monitoring) 1 ea MC DAILY PRN PRN Reason: RENAL Stop: 01/01/18 17:08 Miscellaneous (Probiotic Screen) 1 ea MC PRN PRN PRN Reason: PROTOCOL Stop: 01/03/18 11:47 Multivitamins/Vitamin C (Theragran) 1 tab PO DAILY [facility] Stop: 01/02/18 08:59 Last Admin: 11/05/17 09:51 Dose: Not Given Mupirocin (Bactroban Oint) 1 appl NS BID [facility] Stop: 11/08/17 08:59 Last Admin: 11/05/17 09:51 Dose: Not Given Nitroglycerin (Nitrostat) 0.4 mg SL Q5MIN PRN PRN Reason: Chest Pain Stop: 01/01/18 16:08 Quetiapine Fumarate (Seroquel) 25 mg PO HS [facility]; Protocol Stop: 01/01/18 20:59 Last Admin: 11/04/17 22:08 Dose: 25 mg Quetiapine Fumarate (Seroquel) 12.5 mg PO BID [facility]; Protocol Stop: 01/03/18 08:59 Last Admin: 11/05/17 09:48 Dose: 12.5 mg Sodium Phosphate (Fleet Enema) 135 ml RC DAILY PRN PRN Reason: IF DULCOLAX INEFFECTIVE Stop: 01/01/18 16:08 Trimethoprim/Sulfamethoxazole (Bactrim Ds) 1 tab PO DAILY [facility] Stop: 01/02/18 08:59 Last Admin: 11/05/17 09:48 Dose: 1 tab Zolpidem Tartrate (Ambien) 5 mg PO HS PRN PRN Reason: Insomnia Stop: 01/01/18 14:53 Last Admin: 11/03/17 20:40 Dose: 5 mg
--- NOTE | 2017-11-05 12:30 | Progress Notes ---
DATE: 11/04/2017 SUBJECTIVE: Chart reviewed and the patient interviewed. Also discussed the patient's condition with the staff and reviewed records and labs. The patient is still agitated and she has been in irritable mood. The patient is banging on Afia chair and she is still forgetful and needs lots of redirections. The patient also is still suspicious and is still paranoid. Also confused and needs a lot of assistance. The patient also when I was interviewing her she seems to be having unsteady gait, but still is ambulating well. ASSESSMENT: The patient is still agitated and psychotic. TREATMENT PLAN: Continue to monitor behavior and condition closely. Also, continue to work on her inappropriate and irritable mood and continue to follow up. The patient also continued to take Seroquel in a dose of 12.5 mg twice a day and 25 mg at bedtime and we will continue same dose. [facility]# [id number]
--- NOTE | 2017-11-05 15:10 | Progress Notes ---
DATE: Chart reviewed and the patient interviewed. Also discussed the patient's condition with the staff and reviewed records and labs. The patient is still easily agitated and she is still in irritable and angry mood. The patient also is still having mood swings. The patient also is still suspicious and is still paranoid. Otherwise, the patient is compliant with taking her medications with no side effects of medications. According to the staff, the patient seems to be more agitated when giving her the Ativan and we will change Ativan to Xanax. Otherwise, we will continue all the treatment and medications and continue to follow up closely. [facility]# [id number]
[2017-11-06] MEDS: INSULIN ASPART SLIDING SCALE 100 UNITS/ML UNIT SUBQ SCH ×4 (07:13→21:12)
[2017-11-06] MEDS: Sulfamethoxazole/TMP 800/160mg Tab PO SCH (10:08)
[2017-11-06] MEDS: Multivitamin Tab PO SCH (10:08)
[2017-11-06] MEDS: Aspirin 325 mg EC PO SCH (10:09)
[2017-11-06] MEDS: Lactobacillus Rhamnosus GG 15 Billion CFU CAP.SPRINK PO SCH (10:11)
[2017-11-06] MEDS: Calcium Carb/Vit D 500 mg/200 U Tab PO SCH (10:13)
--- NOTE | 2017-11-07 02:02 | Progress Notes ---
DATE: 11/06/2017 SUBJECTIVE: Chart reviewed and the patient interviewed. Also, discussed the patient's condition with the staff and reviewed records and labs. The patient is still in irritable and angry mood. The patient also is still yelling and screaming at times and she still needs lots of redirections. The patient also still has episodes of agitation and difficulty following directions. Otherwise, the patient is compliant with taking her medications and no side effects of medications. ASSESSMENT: The patient is still agitated and psychotic. TREATMENT PLAN: Continue to monitor her behavior and her condition closely. Also, continue adjusting psychotropic medications and follow up her behavior closely. JOB# [id number]
[2017-11-07] MEDS: INSULIN ASPART SLIDING SCALE 100 UNITS/ML UNIT SUBQ SCH ×4 (06:31→21:12)
[2017-11-07] MEDS: Aspirin 325 mg EC PO SCH (08:29)
[2017-11-07] MEDS: Lactobacillus Rhamnosus GG 15 Billion CFU CAP.SPRINK PO SCH (08:29)
[2017-11-07] MEDS: Multivitamin Tab PO SCH (08:29)
[2017-11-07] MEDS: Calcium Carb/Vit D 500 mg/200 U Tab PO SCH (08:30)
[2017-11-07] MEDS: Sulfamethoxazole/TMP 800/160mg Tab PO SCH (08:30)
--- NOTE | 2017-11-07 09:59 | Internal Medicine Prog Note ---
Internal Medicine Subjective - Subjective Service Date: 11/07/17 Patient seen and examined:: with staff Patient is:: awake Per staff patient has:: tolerating meds Internal Medicine Objective - Results Recent Labs: Laboratory Last Values POC Glucose 95 MG/DL (70 - 105) 11/05/17 11:26 - Physical Exam Vitals and I&O: Vital Signs Temp 97.6 F 11/07/17 06:38 Pulse 71 11/07/17 08:31 Resp 20 11/07/17 06:38 BP 112/56 11/07/17 08:31 Pulse Ox 95 11/07/17 06:38 Intake & Output 11/06/17 11/07/17 11/07/17 18:59 06:59 18:59 Intake Total 1200 240 Balance 1200 240 Intake: Oral 1200 240 Other: # Voids 3 # Bowel Movements 1 0 Active Medications: Current Medications Acetaminophen (Tylenol) 650 mg PO Q4HR PRN PRN Reason: Mild Pain / Temp above 100 Stop: 01/01/18 14:53 Al Hydrox/Mg Hydrox/Simethicone (Maalox) 30 ml PO Q4HR PRN PRN Reason: GI DISTRESS Stop: 01/01/18 14:53 Alprazolam (Xanax) 0.25 mg PO Q6HR PRN; Protocol PRN Reason: Agitation Stop: 01/04/18 13:05 Last Admin: 11/05/17 23:23 Dose: 0.25 mg Amlodipine Besylate (Norvasc) 10 mg PO DAILY [facility] Stop: 01/02/18 08:59 Last Admin: 11/07/17 08:31 Dose: Not Given Ascorbic Acid (Vitamin C) 500 mg PO DAILY [facility] Stop: 01/02/18 08:59 Last Admin: 11/07/17 08:29 Dose: 500 mg Aspirin (Ecotrin) 325 mg PO DAILY [facility] Stop: 01/02/18 08:59 Last Admin: 11/07/17 08:29 Dose: 325 mg Atorvastatin Calcium (Lipitor) 40 mg PO HS [facility] Stop: 01/01/18 20:59 Last Admin: 11/06/17 21:07 Dose: 40 mg Bisacodyl (Dulcolax 10 Mg Supp) 10 mg RC DAILY PRN PRN Reason: Constipation Stop: 01/01/18 16:08 Calcium Carbonate (Tums) 1,000 mg PO Q4HR PRN PRN Reason: GI DISTRESS Stop: 01/01/18 16:08 Calcium/Vitamin D (Oscal W/Vitamin D) 1 tab PO DAILY [facility] Stop: 01/02/18 08:59 Last Admin: 11/07/17 08:30 Dose: 1 tab Carvedilol (Coreg) 12.5 mg PO BID [facility] Stop: 01/01/18 16:59 Last Admin: 11/07/17 08:31 Dose: Not Given Cholecalciferol (Vitamin D3) 1,000 iu PO DAILY [facility] Stop: 01/02/18 08:59 Last Admin: 11/07/17 08:30 Dose: 1,000 iu Donepezil HCl (Aricept) 10 mg PO HS [facility] Stop: 01/01/18 20:59 Last Admin: 11/06/17 21:08 Dose: 10 mg Insulin Aspart (Novolog Insulin Sliding Scale) 0 units SUBQ ACHS [facility]; Protocol Stop: 01/01/18 16:29 Last Admin: 11/07/17 06:31 Dose: Not Given Lactobacillus Rhamnosus (Culturelle 15b) 1 each PO DAILY [facility] Stop: 01/03/18 13:59 Last Admin: 11/07/17 08:29 Dose: 1 each Losartan Potassium (Cozaar) 50 mg PO DAILY [facility] Stop: 01/02/18 08:59 Last Admin: 11/07/17 08:31 Dose: Not Given Magnesium Hydroxide (Milk Of Magnesia) 30 ml PO HS PRN PRN Reason: Constipation Memantine (Namenda) 5 mg PO BID [facility] Stop: 01/01/18 16:59 Last Admin: 11/07/17 08:30 Dose: 5 mg Metformin HCl (Glucophage) 500 mg PO BID [facility] Stop: 01/01/18 16:59 Last Admin: 11/07/17 08:29 Dose: 500 mg Miscellaneous (Clinical Monitoring) 1 ea MC DAILY PRN PRN Reason: RENAL Stop: 01/01/18 17:08 Miscellaneous (Probiotic Screen) 1 ea MC PRN PRN PRN Reason: PROTOCOL Stop: 01/03/18 11:47 Multivitamins/Vitamin C (Theragran) 1 tab PO DAILY [facility] Stop: 01/02/18 08:59 Last Admin: 11/07/17 08:29 Dose: 1 tab Mupirocin (Bactroban Oint) 1 appl NS BID [facility] Stop: 11/08/17 08:59 Last Admin: 11/07/17 08:28 Dose: 1 appl Nitroglycerin (Nitrostat) 0.4 mg SL Q5MIN PRN PRN Reason: Chest Pain Stop: 01/01/18 16:08 Quetiapine Fumarate (Seroquel) 25 mg PO HS [facility]; Protocol Stop: 01/01/18 20:59 Last Admin: 11/06/17 21:08 Dose: 25 mg Quetiapine Fumarate (Seroquel) 12.5 mg PO BID [facility]; Protocol Stop: 01/03/18 08:59 Last Admin: 11/07/17 08:30 Dose: 12.5 mg Sodium Phosphate (Fleet Enema) 135 ml RC DAILY PRN PRN Reason: IF DULCOLAX INEFFECTIVE Stop: 01/01/18 16:08 Trimethoprim/Sulfamethoxazole (Bactrim Ds) 1 tab PO DAILY [facility] Stop: 01/02/18 08:59 Last Admin: 11/07/17 08:30 Dose: 1 tab Zolpidem Tartrate (Ambien) 5 mg PO HS PRN PRN Reason: Insomnia Stop: 01/01/18 14:53 Last Admin: 11/03/17 20:40 Dose: 5 mg General: alert HEENT: NC/AT Neck: Supple Lungs: CTAB Cardiovascular: RRR Abdomen: soft, non-tender, non-distended Internal Medicine Assmt/Plan - Assessment Assessment: hypercholesteremia dementia htn - Plan Plan: cpm Nutritional Asmnt/Malnutr-PDOC - Dietary Evaluation Malnutrition Findings (Please click <Entered> for more info): Nutritional Asmnt/Malnutrition Start: 11/06/17 14: 40 Text: Status: Complete Freq: Protocol: Document 11/06/17 14:40 [email or web address] (Rec: 11/06/17 14:51 [id number] [id number]) Nutritional Asmnt/Malnutrition Patient General Information Nutritional Screening Moderate Risk Diagnosis schozophrenia Pertinent Medical Hx/Surgical Hx HTN, OA, vit D deficiency, DM Subjective Information Pt seen sleeping in bed at time of visit. Per EMR, PO intake 50-75%, metting nutritional needs. Current Diet Order/ Nutrition Support low sodium Pertinent Medications vit C, lipitor, vit D3, novolog, culturelle, glucophage, theragran, seroquel Pertinent Labs 11/02 BUN 28, glucose 86 11/03-11/05 POC 89-165 Nutritional Hx/Data Height 5 ft 2 in Height (Calculated Centimeters) 157.5 Current Weight (lbs) 128 lb Weight (Calculated Kilograms) 58.1 Weight (Calculated Grams) 25297.8 [place] Body Weight 110 Body Mass Index (BMI) 23.3 Weight Status Approriate GI Symptoms GI Symptoms None Last BM none Difficult in: None Skin Integrity/Comment: intact Current %PO Fair (50-74%) Estimated Nutritional Goals BEE in Kcals: Using Current wt Calories/Kcals/Kg 25-30 Kcals Calculated 0164-3869 Protein: Using Current wt Protein g/k-1.2 Protein Calculated 58-70 Fluid: ml 1450-1740ml (1m/kcal) Nutritional Problem No current Nutrition Prob Problem N/A Malnutrition Alert Is there a minimum of two criteria No selected? Query Text:Check all the applicable criteria. A minimum of two criteria are recommended for diagnosis of either severe or non-severe malnutrition. Malnutrition Related to Morbid Obesity Malnutrition related to morbid obesity No Intervention/Recommendation Comments 1. Continue with low sodium diet as ordered. 2. Monitor PO intake, wt, labs and skin integrity 3. F/U as low risk in 7 days, 11/13 Expected Outcomes/Goals Expected Outcomes/Goals 1. PO intake to meet at least 75% of nutritional needs. 2. Wt stability, skin to remain intact, labs to approach WNL.
--- NOTE | 2017-11-07 20:12 | Progress Notes ---
DATE: 11/07/2017 DATE OF SERVICE: 11/07/2017 SUBJECTIVE: The patient in the hospital due to an abscess, paranoid, not answering too many questions, history of dementia, osteoarthritis. The patient remains symptomatic. On [id number], does not want to talk to me, opens her eyes, sees me, and then closes them. Slept fairly well last night, 4-5 hours. Still confused per staff. Poorly oriented. Talking about having a bath with Satan. Noted to be anxious, paranoid, delusional. Medications were noted. The patient requiring some prompting to eat. ASSESSMENT: The patient remains symptomatic, delusional, making bizarre statements as noted. PLAN: We will continue to monitor. We will continue Aricept, Seroquel. Given her ongoing symptoms, she is not safe for discharge. JOB# [id number]
[2017-11-08] MEDS: INSULIN ASPART SLIDING SCALE 100 UNITS/ML UNIT SUBQ SCH ×4 (07:34→21:13)
--- NOTE | 2017-11-08 08:21 | Progress Notes ---
DATE: 11/08/2017 SUBJECTIVE: The patient in the hospital, paranoid, states her brother is a psychiatrist, "he was a nut." Then she states "I am nut, does not know the year, does not know the month, asking me personal questions such as if I am Religion." The patient states "I am scared," " I am frustrated," I am wired." Mostly in her room. Still to rambling on exam, yelling. The patient is confused, disoriented, making nonsensical statements, and intrusive. Telling me " I am nut." Noted to be forgetful, mostly in her room. She remains impulsive and unpredictable. ASSESSMENT: The patient is symptomatic, not safe for discharge. Medications were noted. We will titrate and adjust medications. She is not currently safe for discharge at this time. We will titrate dosing of Seroquel. JOB# [id number]
[2017-11-08] MEDS: Aspirin 325 mg EC PO SCH (09:01)
[2017-11-08] MEDS: Calcium Carb/Vit D 500 mg/200 U Tab PO SCH (09:02)
[2017-11-08] MEDS: Lactobacillus Rhamnosus GG 15 Billion CFU CAP.SPRINK PO SCH (09:02)
[2017-11-08] MEDS: Multivitamin Tab PO SCH (09:02)
[2017-11-08] MEDS: Sulfamethoxazole/TMP 800/160mg Tab PO SCH (09:02)
--- NOTE | 2017-11-08 13:03 | General Progress Note ---
Subjective - Review of Systems Events since last encounter: patient is paranoid taking nonsense very confused Objective - Results Recent Labs: Laboratory Last Values POC Glucose 95 MG/DL (70 - 105) 11/05/17 11:26 - Physical Exam Vitals and I&O: Vital Signs Temp 98.0 F 11/08/17 06:06 Pulse 70 11/08/17 09:03 Resp 20 11/08/17 10:37 BP 121/67 11/08/17 09:03 Pulse Ox 96 11/08/17 06:06 Intake & Output 11/07/17 11/08/17 11/08/17 18:59 06:59 18:59 Intake Total 960 Balance 960 Intake: Oral 960 Other: # Voids 3 # Bowel Movements 1 Stool Characteristics Soft Soft Formed Formed Active Medications: Current Medications Acetaminophen (Tylenol) 650 mg PO Q4HR PRN PRN Reason: Mild Pain / Temp above 100 Stop: 01/01/18 14:53 Al Hydrox/Mg Hydrox/Simethicone (Maalox) 30 ml PO Q4HR PRN PRN Reason: GI DISTRESS Stop: 01/01/18 14:53 Alprazolam (Xanax) 0.25 mg PO Q6HR PRN; Protocol PRN Reason: Agitation Stop: 01/04/18 13:05 Last Admin: 11/08/17 09:01 Dose: 0.25 mg Amlodipine Besylate (Norvasc) 10 mg PO DAILY REHANA Stop: 01/02/18 08:59 Last Admin: 11/08/17 09:03 Dose: 10 mg Ascorbic Acid (Vitamin C) 500 mg PO DAILY REHANA Stop: 01/02/18 08:59 Last Admin: 11/08/17 09:02 Dose: 500 mg Aspirin (Ecotrin) 325 mg PO DAILY REHANA Stop: 01/02/18 08:59 Last Admin: 11/08/17 09:01 Dose: 325 mg Atorvastatin Calcium (Lipitor) 40 mg PO HS REHANA Stop: 01/01/18 20:59 Last Admin: 11/07/17 21:05 Dose: 40 mg Bisacodyl (Dulcolax 10 Mg Supp) 10 mg RC DAILY PRN PRN Reason: Constipation Stop: 01/01/18 16:08 Calcium Carbonate (Tums) 1,000 mg PO Q4HR PRN PRN Reason: GI DISTRESS Stop: 01/01/18 16:08 Calcium/Vitamin D (Oscal W/Vitamin D) 1 tab PO DAILY REHANA Stop: 01/02/18 08:59 Last Admin: 11/08/17 09:02 Dose: 1 tab Carvedilol (Coreg) 12.5 mg PO BID REHANA Stop: 01/01/18 16:59 Last Admin: 11/08/17 09:03 Dose: 12.5 mg Cholecalciferol (Vitamin D3) 1,000 iu PO DAILY REHANA Stop: 01/02/18 08:59 Last Admin: 11/08/17 09:02 Dose: 1,000 iu Donepezil HCl (Aricept) 10 mg PO HS REHANA Stop: 01/01/18 20:59 Last Admin: 11/07/17 21:07 Dose: 10 mg Insulin Aspart (Novolog Insulin Sliding Scale) 0 units SUBQ ACHS [facility]; Protocol Stop: 01/01/18 16:29 Last Admin: 11/08/17 11:41 Dose: Not Given Lactobacillus Rhamnosus (Culturelle 15b) 1 each PO DAILY REHANA Stop: 01/03/18 13:59 Last Admin: 11/08/17 09:02 Dose: 1 each Losartan Potassium (Cozaar) 50 mg PO DAILY REHANA Stop: 01/02/18 08:59 Last Admin: 11/08/17 09:03 Dose: 50 mg Magnesium Hydroxide (Milk Of Magnesia) 30 ml PO HS PRN PRN Reason: Constipation Memantine (Namenda) 5 mg PO BID REHANA Stop: 01/01/18 16:59 Last Admin: 11/08/17 09:01 Dose: 5 mg Metformin HCl (Glucophage) 500 mg PO BID REHANA Stop: 01/01/18 16:59 Last Admin: 11/08/17 09:02 Dose: 500 mg Miscellaneous (Clinical Monitoring) 1 ea MC DAILY PRN PRN Reason: RENAL Stop: 01/01/18 17:08 Miscellaneous (Probiotic Screen) 1 ea MC PRN PRN PRN Reason: PROTOCOL Stop: 01/03/18 11:47 Multivitamins/Vitamin C (Theragran) 1 tab PO DAILY REHANA Stop: 01/02/18 08:59 Last Admin: 11/08/17 09:02 Dose: 1 tab Nitroglycerin (Nitrostat) 0.4 mg SL Q5MIN PRN PRN Reason: Chest Pain Stop: 01/01/18 16:08 Quetiapine Fumarate (Seroquel) 12.5 mg PO BID REHANA; Protocol Stop: 01/03/18 08:59 Last Admin: 11/08/17 09:02 Dose: 12.5 mg Quetiapine Fumarate (Seroquel) 37.5 mg PO HS REHANA; Protocol Stop: 01/07/18 20:59 Sodium Phosphate (Fleet Enema) 135 ml RC DAILY PRN PRN Reason: IF DULCOLAX INEFFECTIVE Stop: 01/01/18 16:08 Trimethoprim/Sulfamethoxazole (Bactrim Ds) 1 tab PO DAILY REHANA Stop: 01/02/18 08:59 Last Admin: 11/08/17 09:02 Dose: 1 tab Zolpidem Tartrate (Ambien) 5 mg PO HS PRN PRN Reason: Insomnia Stop: 01/01/18 14:53 Last Admin: 11/07/17 21:08 Dose: 5 mg Nutritional Asmnt/Malnutr-PDOC - Dietary Evaluation Malnutrition Findings (Please click <Entered> for more info): Nutritional Asmnt/Malnutrition Start: 11/06/17 14: 40 Text: Status: Complete Freq: Protocol: Document 11/06/17 14:40 [email or web address] (Rec: 11/06/17 14:51 [email or web address]) Nutritional Asmnt/Malnutrition Patient General Information Nutritional Screening Moderate Risk Diagnosis schozophrenia Pertinent Medical Hx/Surgical Hx HTN, OA, vit D deficiency, DM Subjective Information Pt seen sleeping in bed at time of visit. Per EMR, PO intake 50-75%, metting nutritional needs. Current Diet Order/ Nutrition Support low sodium Pertinent Medications vit C, lipitor, vit D3, novolog, culturelle, glucophage, theragran, seroquel Pertinent Labs 11/02 BUN 28, glucose 86 11/03-11/05 POC 89-165 Nutritional Hx/Data Height 1.57 m Height (Calculated Centimeters) 157.5 Current Weight (lbs) 58.06 kg Weight (Calculated Kilograms) 58.1 Weight (Calculated Grams) 79965.8 [place] Body Weight 110 Body Mass Index (BMI) 23.3 Weight Status Approriate GI Symptoms GI Symptoms None Last BM none Difficult in: None Skin Integrity/Comment: intact Current %PO Fair (50-74%) Estimated Nutritional Goals BEE in Kcals: Using Current wt Calories/Kcals/Kg 25-30 Kcals Calculated 4020-1284 Protein: Using Current wt Protein g/k-1.2 Protein Calculated 58-70 Fluid: ml 1450-1740ml (1m/kcal) Nutritional Problem No current Nutrition Prob Problem N/A Malnutrition Alert Is there a minimum of two criteria No selected? Query Text:Check all the applicable criteria. A minimum of two criteria are recommended for diagnosis of either severe or non-severe malnutrition. Malnutrition Related to Morbid Obesity Malnutrition related to morbid obesity No Intervention/Recommendation Comments 1. Continue with low sodium diet as ordered. 2. Monitor PO intake, wt, labs and skin integrity 3. F/U as low risk in 7 days, 11/13 Expected Outcomes/Goals Expected Outcomes/Goals 1. PO intake to meet at least 75% of nutritional needs. 2. Wt stability, skin to remain intact, labs to approach WNL.
[2017-11-09] MEDS: INSULIN ASPART SLIDING SCALE 100 UNITS/ML UNIT SUBQ SCH ×4 (07:25→20:18)
[2017-11-09] MEDS: Aspirin 325 mg EC PO SCH (08:57)
[2017-11-09] MEDS: Multivitamin Tab PO SCH (08:57)
[2017-11-09] MEDS: Calcium Carb/Vit D 500 mg/200 U Tab PO SCH (08:57)
[2017-11-09] MEDS: Lactobacillus Rhamnosus GG 15 Billion CFU CAP.SPRINK PO SCH (08:57)
[2017-11-09] MEDS: Sulfamethoxazole/TMP 800/160mg Tab PO SCH (08:57)
--- NOTE | 2017-11-09 16:41 | Internal Medicine Prog Note ---
Internal Medicine Subjective - Subjective Patient is:: awake Per staff patient has:: tolerating meds Internal Medicine Objective - Results Recent Labs: Laboratory Last Values POC Glucose 92 MG/DL (70 - 105) 11/09/17 05:58 - Physical Exam Vitals and I&O: Vital Signs Temp 97.5 F 11/09/17 06:31 Pulse 68 11/09/17 09:36 Resp 18 11/09/17 08:00 BP 112/78 11/09/17 09:36 Pulse Ox 97 11/09/17 06:31 Intake & Output 11/08/17 11/09/17 11/09/17 18:59 06:59 18:59 Intake Total 700 120 Balance 700 120 Intake: Oral 700 120 Other: # Voids 3 3 # Bowel Movements 1 Stool Characteristics Soft Formed Active Medications: Current Medications Acetaminophen (Tylenol) 650 mg PO Q4HR PRN PRN Reason: Mild Pain / Temp above 100 Stop: 01/01/18 14:53 Al Hydrox/Mg Hydrox/Simethicone (Maalox) 30 ml PO Q4HR PRN PRN Reason: GI DISTRESS Stop: 01/01/18 14:53 Alprazolam (Xanax) 0.25 mg PO Q6HR PRN; Protocol PRN Reason: Agitation Stop: 01/04/18 13:05 Last Admin: 11/08/17 16:51 Dose: 0.25 mg Amlodipine Besylate (Norvasc) 10 mg PO DAILY REHANA Stop: 01/02/18 08:59 Last Admin: 11/09/17 09:21 Dose: Not Given Ascorbic Acid (Vitamin C) 500 mg PO DAILY REHANA Stop: 01/02/18 08:59 Last Admin: 11/09/17 08:57 Dose: 500 mg Aspirin (Ecotrin) 325 mg PO DAILY REHANA Stop: 01/02/18 08:59 Last Admin: 11/09/17 08:57 Dose: 325 mg Atorvastatin Calcium (Lipitor) 40 mg PO HS REHANA Stop: 01/01/18 20:59 Last Admin: 11/08/17 20:49 Dose: 40 mg Bisacodyl (Dulcolax 10 Mg Supp) 10 mg RC DAILY PRN PRN Reason: Constipation Stop: 01/01/18 16:08 Calcium Carbonate (Tums) 1,000 mg PO Q4HR PRN PRN Reason: GI DISTRESS Stop: 01/01/18 16:08 Calcium/Vitamin D (Oscal W/Vitamin D) 1 tab PO DAILY REHANA Stop: 01/02/18 08:59 Last Admin: 11/09/17 08:57 Dose: 1 tab Carvedilol (Coreg) 12.5 mg PO BID REHANA Stop: 01/01/18 16:59 Last Admin: 11/09/17 09:36 Dose: Not Given Cholecalciferol (Vitamin D3) 1,000 iu PO DAILY REHANA Stop: 01/02/18 08:59 Last Admin: 11/09/17 08:57 Dose: 1,000 iu Donepezil HCl (Aricept) 10 mg PO HS REHANA Stop: 01/01/18 20:59 Last Admin: 11/08/17 20:50 Dose: 10 mg Insulin Aspart (Novolog Insulin Sliding Scale) 0 units SUBQ ACHS [facility]; Protocol Stop: 01/01/18 16:29 Last Admin: 11/09/17 11:37 Dose: Not Given Lactobacillus Rhamnosus (Culturelle 15b) 1 each PO DAILY REHANA Stop: 01/03/18 13:59 Last Admin: 11/09/17 08:57 Dose: 1 each Losartan Potassium (Cozaar) 50 mg PO DAILY REHANA Stop: 01/02/18 08:59 Last Admin: 11/09/17 09:36 Dose: Not Given Magnesium Hydroxide (Milk Of Magnesia) 30 ml PO HS PRN PRN Reason: Constipation Memantine (Namenda) 5 mg PO BID REHANA Stop: 01/01/18 16:59 Last Admin: 11/09/17 08:58 Dose: 5 mg Metformin HCl (Glucophage) 500 mg PO BID REHANA Stop: 01/01/18 16:59 Last Admin: 11/09/17 08:57 Dose: 500 mg Miscellaneous (Clinical Monitoring) 1 ea MC DAILY PRN PRN Reason: RENAL Stop: 01/01/18 17:08 Miscellaneous (Probiotic Screen) 1 ea MC PRN PRN PRN Reason: PROTOCOL Stop: 01/03/18 11:47 Multivitamins/Vitamin C (Theragran) 1 tab PO DAILY REHANA Stop: 01/02/18 08:59 Last Admin: 11/09/17 08:57 Dose: 1 tab Nitroglycerin (Nitrostat) 0.4 mg SL Q5MIN PRN PRN Reason: Chest Pain Stop: 01/01/18 16:08 Quetiapine Fumarate (Seroquel) 12.5 mg PO BID REHANA; Protocol Stop: 01/03/18 08:59 Last Admin: 11/09/17 08:58 Dose: 12.5 mg Quetiapine Fumarate (Seroquel) 37.5 mg PO HS REHANA; Protocol Stop: 01/07/18 20:59 Last Admin: 11/08/17 20:51 Dose: 37.5 mg Sodium Phosphate (Fleet Enema) 135 ml RC DAILY PRN PRN Reason: IF DULCOLAX INEFFECTIVE Stop: 01/01/18 16:08 Trimethoprim/Sulfamethoxazole (Bactrim Ds) 1 tab PO DAILY REHANA Stop: 01/02/18 08:59 Last Admin: 11/09/17 08:57 Dose: 1 tab Zolpidem Tartrate (Ambien) 5 mg PO HS PRN PRN Reason: Insomnia Stop: 01/01/18 14:53 Last Admin: 11/08/17 20:50 Dose: 5 mg General: alert HEENT: NC/AT Neck: Supple Lungs: CTAB Cardiovascular: RRR Abdomen: soft, non-tender, non-distended Nutritional Asmnt/Malnutr-PDOC - Dietary Evaluation Malnutrition Findings (Please click <Entered> for more info): Nutritional Asmnt/Malnutrition Start: 11/06/17 14: 40 Text: Status: Complete Freq: Protocol: Document 11/06/17 14:40 LCHENG (Rec: 11/06/17 14:51 [email or web address] [id number]) Nutritional Asmnt/Malnutrition Patient General Information Nutritional Screening Moderate Risk Diagnosis schozophrenia Pertinent Medical Hx/Surgical Hx HTN, OA, vit D deficiency, DM Subjective Information Pt seen sleeping in bed at time of visit. Per EMR, PO intake 50-75%, metting nutritional needs. Current Diet Order/ Nutrition Support low sodium Pertinent Medications vit C, lipitor, vit D3, novolog, culturelle, glucophage, theragran, seroquel Pertinent Labs 11/02 BUN 28, glucose 86 11/03-11/05 POC 89-165 Nutritional Hx/Data Height 1.57 m Height (Calculated Centimeters) 157.5 Current Weight (lbs) 58.06 kg Weight (Calculated Kilograms) 58.1 Weight (Calculated Grams) 60176.8 [place] Body Weight 110 Body Mass Index (BMI) 23.3 Weight Status Approriate GI Symptoms GI Symptoms None Last BM none Difficult in: None Skin Integrity/Comment: intact Current %PO Fair (50-74%) Estimated Nutritional Goals BEE in Kcals: Using Current wt Calories/Kcals/Kg 25-30 Kcals Calculated 6885-6473 Protein: Using Current wt Protein g/k-1.2 Protein Calculated 58-70 Fluid: ml 1450-1740ml (1m/kcal) Nutritional Problem No current Nutrition Prob Problem N/A Malnutrition Alert Is there a minimum of two criteria No selected? Query Text:Check all the applicable criteria. A minimum of two criteria are recommended for diagnosis of either severe or non-severe malnutrition. Malnutrition Related to Morbid Obesity Malnutrition related to morbid obesity No Intervention/Recommendation Comments 1. Continue with low sodium diet as ordered. 2. Monitor PO intake, wt, labs and skin integrity 3. F/U as low risk in 7 days, 11/13 Expected Outcomes/Goals Expected Outcomes/Goals 1. PO intake to meet at least 75% of nutritional needs. 2. Wt stability, skin to remain intact, labs to approach WNL.
[2017-11-10] MEDS: INSULIN ASPART SLIDING SCALE 100 UNITS/ML UNIT SUBQ SCH ×2 (07:46→11:52)
[2017-11-10] MEDS: Aspirin 325 mg EC PO SCH (08:53)
[2017-11-10] MEDS: Lactobacillus Rhamnosus GG 15 Billion CFU CAP.SPRINK PO SCH (08:54)
[2017-11-10] MEDS: Sulfamethoxazole/TMP 800/160mg Tab PO SCH (08:54)
[2017-11-10] MEDS: Multivitamin Tab PO SCH (08:54)
[2017-11-10] MEDS: Calcium Carb/Vit D 500 mg/200 U Tab PO SCH (08:58)
--- NOTE | 2017-11-10 22:48 | Discharge Summary ---
DATE OF DISCHARGE: 11/10/2017 PATIENT'S AGE: 82. SEX: Female. PHYSICIAN: Kenya Ruiz MD, MPH FINAL DIAGNOSES: PRIMARY DIAGNOSIS: Unspecified psychosis. SECONDARY DIAGNOSES: Dementia, [id number], with psychotic features. MEDICAL DIAGNOSES: Diabetes mellitus, hypertension and osteoarthritis. REASON FOR HOSPITALIZATION: The patient was admitted to the hospital from [facility] because of increased agitation, irritability and paranoia. HOSPITAL COURSE: The patient continued to be in irritable mood and suspicious and paranoid. She also was having difficulty with her mood. She also was needing lot of redirections. The patient was given Seroquel and the dose adjusted to 12.5 mg twice a day and 37.5 mg at bedtime. The patient's affect was brighter. The patient was less irritable, less agitated and it was easier to follow directions. AFTER DISCHARGE PLANS: The patient discharged from the hospital to [facility] with plans for followup there. EXPECTED OUTCOME AFTER DISCHARGE: Fair if the patient continues to take her psychotropic medications and continue to follow up with discharge plans. JOB# [id number]
--- NOTE | 2017-11-11 00:19 | Discharge Summary ---
DATE OF DISCHARGE: 11/10/2017 AGE: 82. SEX: Female. PHYSICIAN: Dr. Ruiz. FINAL DIAGNOSIS: PRIMARY DIAGNOSIS: Unspecified psychosis. SECONDARY DIAGNOSIS: Dementia, moderate to severe, with psychotic features. MEDICAL DIAGNOSES: Hypertension. Diabetes mellitus. Osteoarthritis. REASON FOR HOSPITALIZATION: The patient was admitted to the hospital because of agitation and irritability. HOSPITAL COURSE: The patient continued to be in irritable and angry mood. Also, she was easily agitated. The patient also was suspicious and paranoid. The patient also was started on Xanax on p.r.n. basis and also she was given Aricept 10 mg at bedtime and Namenda 5 mg twice a day. She was still agitated and in irritable mood and the patient was given Seroquel at a dose of 12.5 mg twice a day and 7.5 mg at bedtime. Gradually, the patient's affect was brighter. The patient was less irritable and less agitated. The patient was discharged from the hospital back to the [facility]. Physical examination of the patient showed no major medical problems and the patient was monitored closely while in the hospital. AFTER DISCHARGE PLANS: The patient discharged from the hospital and went to [facility] with plans to follow him up there. EXPECTED OUTCOME AFTER DISCHARGE: Fair if the patient continues to take her psychotropic medications and follow up with treatment plans. [facility]# [id number]
== END 2017-11-10 17:25 | DRG 885 ==
LOC: GERO 14:09
PROVIDERS: ADMIT Psychiatry & Neurology Psychiatry; ATTEND Psychiatry & Neurology Psychiatry
DX: F29 Unspecified psychosis not due to a substance or known physiological condition (principal); F03.91 Unspecified dementia, unspecified severity, with behavioral disturbance; I10 Essential (primary) hypertension; E78.00 Pure hypercholesterolemia, unspecified; E11.9 Type 2 diabetes mellitus without complications; M19.90 Unspecified osteoarthritis, unspecified site; E55.9 Vitamin D deficiency, unspecified
CPT/HCPCS: 82948-90; G0410; J1200; J1630; J1815; Z7610